=== PATIENT | male | born 1985 | race Caucasian/White ===

== ENCOUNTER 2019-11-26 11:36 | Emergency (ER) | payer OTHER, SELFPAY ==
[2019-11-26 12:05] VITALS: BP 141/100; PULSE 116; RESP 18; TEMP 36.6; O2SAT 96; BMI 28.5
--- NOTE | 2019-11-26 13:19 | ED_ITS ---
HPI - General Adult <Michael Reynolds MD - Last Filed: 11/27/19 18:15> General Chief complaint: Toxicology Problem Stated complaint: neck/back pain/depression/tox x3 days Time Seen by Provider: 11/26/19 12:23 Source: patient and family Mode of arrival: Ambulatory Limitations: no limitations History of Present Illness HPI narrative: Patient brought here by his father. They desire detox from methamphetamine.. Denies any other street drugs or illicit drugs. Does not abuse alcohol. Has been doing methamphetamine last night and this morning. Father states he relapsed about 3 or 4 days ago. He was clean and sober for 6 months. Patient is awake alert oriented to self and date of the month of November. Denies any fall or injury. Patient was at [facility] 2 days ago and was at [facility] last evening. He eloped last night, did not want to wait for a rehab bed Related Data Home Medications Medication Instructions Recorded Confirmed quetiapine 100 mg PO DAILY 11/26/19 11/26/19 quetiapine 200 mg PO BEDTIME 11/26/19 11/26/19 Previous Rx's Medication Instructions Recorded divalproex 500 mg tablet,delayed 500 mg PO QID #360 tab 09/30/19 release gabapentin 600 mg tablet 600 mg PO .COMPLEX #0 tab 09/30/19 Allergies Allergy/AdvReac Type Severity Reaction Status Date / Time lamotrigine AdvReac Rash Verified 11/26/19 12:05 Review of Systems <Michael Reynolds MD - Last Filed: 11/27/19 18:15> Review of Systems Narrative: GENERAL: Denies chills, fatigue, malaise, fever, sweats. HEENT: Denies sinus pain, ear pain, sore throat, difficulty swallowing, dizziness. RESPIRATORY: Denies dyspnea, cough, wheezing, hemoptysis, sputum. CARDIOVASCULAR: Denies chest pain, palpitations, orthopnea, edema, GASTROINTESTINAL: Denies nausea, vomiting, abdominal pain, diarrhea, const ipation, melena. : Denies dysuria, frequency, incontinence, hematuria, urinary retention. MUSCULOSKELETAL: denies weakness, joint pain, or bony pain SKIN: Denies rash, skin lesions, or other NEUROLOGIC: Denies weakness, headache, numbness, change in speech, confusion, seizures, incoordination. PSYCHIATRIC: has anxiety, visual and auditory hallucinations. Denies SI or HI. ROS Unobtainable: All systems reviewed & are unremarkable except as noted in HPI and below Patient History <Michael Reynolds MD - Last Filed: 11/27/19 18:15> Social History Smoking Status: Current every day smoker Smoking Status: Current every day smoker Substance Use Type: methamphetamine Exam <Michael Reynolds MD - Last Filed: 11/27/19 18:15> Narrative Exam Narrative: GENERAL: patient appears stated age. Well-nourished, well- developed patient, in no distress, not toxic, anxious and tremulous HEAD: Atraumatic. Normocephalic. EYES: Pupils equal round and reactive. Extraocular motions intact. No scleral icterus. No injection or drainage. CARDIOVASCULAR: Regular rate and rhythm without murmurs, gallops, or rubs. RESPIRATORY: Clear to auscultation. Breath sounds equal bilaterally. No wheezes, rales, or rhonchi. GASTROINTESTINAL: Abdomen soft, non-tender, nondistended. EXTREMITIES: No edema or joint tenderness. BACK: Nontender without deformity or crepitance. No flank tenderness. NEURO: AOx3. Random tremors and limb movements. SKIN: No rash or erythema of visible areas Psychiatry; anxious but cooperative. Follows commands and questioning. Answers appropriately. Denies SI or HI. Initial Vital Signs Initial Vital Signs: Vital Signs Temperature 97.8 F 11/26/19 12:05 Pulse Rate 116 H 11/26/19 12:05 Respiratory Rate 18 11/26/19 12:05 Blood Pressure 141/100 H 11/26/19 12:05 Pulse Oximetry 96 11/26/19 12:05 <Arturo Payton DO - Last Filed: 11/27/19 18:13> Initial Vital Signs Initial Vital Signs: Vital Signs Temperature 97.8 F 11/26/19 12:05 Pulse Rate 116 H 11/26/19 12:05 Respiratory Rate 18 11/26/19 12:05 Blood Pressure 141/100 H 11/26/19 12:05 Pulse Oximetry 96 11/26/19 12:05 Course <Michael Reynolds MD - Last Filed: 11/27/19 18:15> Course Course Narrative: After all extensive review with social services patient finding able to find placement has no mesh crisis unit. November 26 9:39 a.m. Time 10:20 a.m.. I was able to call Ativan 1 mg every 2 hours as needed for agitation anxiety as protocol from [place] which crisis protocol she. Called into [facility] in [place] in [facility]. Father will pick it up and bring it here. Ten tablets of Ativan Orders Ordered: Discontinued Medications Divalproex Sodium (Depakote) 500 mg PO QID [facility] Last Admin: 11/27/19 10:46 Dose: 500 mg Documented by: Admin: 11/27/19 00:10 Dose: 500 mg Documented by: JACKLYN Doxycycline Hyclate (Vibramycin) 100 mg PO NOW ONE Stop: 11/27/19 01:02 Last Admin: 11/27/19 01:18 Dose: 100 mg Documented by: CARLOS Gabapentin (Neurontin) 600 mg PO TID [facility] Last Admin: 11/27/19 10:46 Dose: 600 mg Documented by: Admin: 11/27/19 00:10 Dose: 600 mg Documented by: JACKLYN Sodium Chloride (Normal Saline 0.9%) 1,000 mls @ 1,000 mls/hr IV BOLUS ONE Stop: 11/26/19 13:23 Last Infusion: 11/26/19 14:21 Dose: 0 mls/hr Documented by: Admin: 11/26/19 13:33 Dose: 1,000 mls/hr Documented by: CARLOS Lorazepam (Ativan) 1 mg IV NOW ONE Stop: 11/26/19 12:24 Last Admin: 11/26/19 13:32 Dose: 1 mg Documented by: CARLOS Lorazepam (Ativan) 1 mg PO NOW ONE Stop: 11/27/19 01:02 Last Admin: 11/27/19 01:18 Dose: 1 mg Documented by: CARLOS Lorazepam (Ativan) 1 mg PO NOW ONE Stop: 11/27/19 10:06 Last Admin: 11/27/19 10:46 Dose: 1 mg Documented by: SAUL Lorazepam (Ativan) 1 mg PO NOW ONE Stop: 11/27/19 12:02 Last Admin: 11/27/19 12:06 Dose: 1 mg Documented by: SAUL Nicotine (Nicoderm) 21 mg TOP NOW ONE Stop: 11/26/19 16:12 Last Admin: 11/26/19 16:40 Dose: 21 mg Documented by: CARLOS Olanzapine (Zyprexa Zydis) 10 mg PO NOW ONE Stop: 11/26/19 14:11 Last Admin: 11/26/19 14:14 Dose: 10 mg Documented by: CARLOS Ondansetron HCl (Zofran) 4 mg IV NOW ONE Stop: 11/26/19 12:25 Last Admin: 11/26/19 13:32 Dose: 4 mg Documented by: CARLOS Quetiapine Fumarate (Seroquel) 100 mg PO DAILY [facility] Last Admin: 11/27/19 12:06 Dose: 100 mg Documented by: SAUL Quetiapine Fumarate (Seroquel) 200 mg PO BEDTIME [facility] Last Admin: 11/27/19 01:20 Dose: Not Given Documented by: CARLOS Reevaluation(s) Reevaluation #1: No visual or auditory hallucinations at this time. Patient is resting comfortably. Disposition completed for transfer to [facility]. Time: 09:40 Vital Signs Vital signs: Vital Signs - 8 hr 11/27/19 11:54 Pulse Rate 108 H Respiratory Rate 20 Blood Pressure [Left Arm] 123/80 Pulse Oximetry 99 <Arturo Payton DO - Last Filed: 11/27/19 18:13> Course Course Narrative: patient received in sign out from Dr. Reynolds. I have performed an independent history and physical exam. He is resting comfortably, but asks if I can check out his leg which has a scratch and some surrounding redness. There is no fluctuance or induration and this is consistent with a mild early cellulitis for which he was given an antibiotic. The administration at [facility] called back and stated they are unable to accept patient at this time given their expected difficulty in placing patient at a detox facility on the back end. Orders Ordered: Discontinued Medications Divalproex Sodium (Depakote) 500 mg PO QID [facility] Last Admin: 11/27/19 10:46 Dose: 500 mg Documented by: Admin: 11/27/19 00:10 Dose: 500 mg Documented by: JACKLYN Doxycycline Hyclate (Vibramycin) 100 mg PO NOW ONE Stop: 11/27/19 01:02 Last Admin: 11/27/19 01:18 Dose: 100 mg Documented by: CARLOS Gabapentin (Neurontin) 600 mg PO TID [facility] Last Admin: 11/27/19 10:46 Dose: 600 mg Documented by: Admin: 11/27/19 00:10 Dose: 600 mg Documented by: JACKLYN Sodium Chloride (Normal Saline 0.9%) 1,000 mls @ 1,000 mls/hr IV BOLUS ONE Stop: 11/26/19 13:23 Last Infusion: 11/26/19 14:21 Dose: 0 mls/hr Documented by: Admin: 11/26/19 13:33 Dose: 1,000 mls/hr Documented by: CARLOS Lorazepam (Ativan) 1 mg IV NOW ONE Stop: 11/26/19 12:24 Last Admin: 11/26/19 13:32 Dose: 1 mg Documented by: CARLOS Lorazepam (Ativan) 1 mg PO NOW ONE Stop: 11/27/19 01:02 Last Admin: 11/27/19 01:18 Dose: 1 mg Documented by: CARLOS Lorazepam (Ativan) 1 mg PO NOW ONE Stop: 11/27/19 10:06 Last Admin: 11/27/19 10:46 Dose: 1 mg Documented by: SAUL Lorazepam (Ativan) 1 mg PO NOW ONE Stop: 11/27/19 12:02 Last Admin: 11/27/19 12:06 Dose: 1 mg Documented by: SAUL Nicotine (Nicoderm) 21 mg TOP NOW ONE Stop: 11/26/19 16:12 Last Admin: 11/26/19 16:40 Dose: 21 mg Documented by: CARLOS Olanzapine (Zyprexa Zydis) 10 mg PO NOW ONE Stop: 11/26/19 14:11 Last Admin: 11/26/19 14:14 Dose: 10 mg Documented by: CARLOS Ondansetron HCl (Zofran) 4 mg IV NOW ONE Stop: 11/26/19 12:25 Last Admin: 11/26/19 13:32 Dose: 4 mg Documented by: CARLOS Quetiapine Fumarate (Seroquel) 100 mg PO DAILY [facility] Last Admin: 11/27/19 12:06 Dose: 100 mg Documented by: MMCFARL Quetiapine Fumarate (Seroquel) 200 mg PO BEDTIME [facility] Last Admin: 11/27/19 01:20 Dose: Not Given Documented by: CARLOS Vital Signs Vital signs: Vital Signs - 8 hr 11/27/19 11:54 Pulse Rate 108 H Respiratory Rate 20 Blood Pressure [Left Arm] 123/80 Pulse Oximetry 99 Medical Decision Making <Michael Reynolds MD - Last Filed: 11/27/19 18:15> Lab Data Result diagrams: 11/26/19 13:20 11/26/19 13:20 Labs: Lab Results 11/26/19 11/26/19 11/26/19 Range/Units 13:20 13:20 13:20 WBC 9.3 (4.5-11.0) X10^3/uL RBC 3.98 L (4.5-5.9) X10^6/uL Hgb 12.1 L (13.5-17.5) g/dL Hct 34.1 L (41-53) % MCV 85.7 (80-100) fL MCH 30.4 (26-34) PG MCHC 35.5 (30-36) % RDW 12.1 (11.6-14.8) % Plt Count 273 (150-400) X10^3/uL Neut % (Auto) 78.8 H (50-75) % Lymph % (Auto) 11.4 L (25-40) % [place] % (Auto) 9.0 (3-14) % Eos % (Auto) 0.5 L (2-4) % Baso % (Auto) 0.3 (0-2) % Neut # (Auto) 7300 H (4497-2985) /uL Lymph # (Auto) 1100 (8093-9793) /uL [place] # (Auto) 800 (0-900) /uL Eos # (Auto) 0 (0-450) /uL Baso # (Auto) 0 (0-100) /uL Sodium 138 (137-145) mmol/L Potassium 3.6 (3.4-5.1) mmol/L Chloride 106 (98-107) mmol/L Carbon Dioxide 24 (22-32) mmol/L BUN 28 H (9-20) mg/dL Creatinine 0.74 (0.66-1.25) mg/dL Estimated GFR > 60.0 (>60) mL/min BUN/Creatinine Ratio 37.8 H (6-22) Glucose 118 H (70-100) mg/dL Calcium 9.1 (8.4-10.2) mg/dL Phosphorus 4.8 H (2.5-4.5) mg/dL Magnesium 2.1 (1.6-2.3) mg/dL Total Bilirubin 0.8 (0.2-1.3) mg/dL Conjugated Bilirubin 0.0 (0.0-0.3) md/dL Unconjugated Bilirubin 0.7 (0.0-1.1) mg/dL AST 67 H (17-59) IU/L ALT 38 (<50) IU/L Alkaline Phosphatase 69 (38-126) U/L Total Protein 7.1 (6.3-8.2) g/dL Albumin 4.0 (3.5-5.0) g/dL Globulin 3.1 (1.7-4.1) g/dL Albumin/Globulin Ratio 1.3 (1.0-2.8) Lipase 38 (23-300) U/L TSH 1.49 (0.47-4.68) uIU/mL Urine Color Urine Appearance Urine pH (4.5-8.0) Ur Specific Gordon (1.000-1.035) Urine Protein (Negative) Urine Glucose (UA) (Negative) g/dL Urine Ketones (NEGATIVE) Urine Occult Blood (Negative) Urine Nitrate (Negative) Urine Bilirubin (NEGATIVE) Urine Urobilinogen (0.2) E.U./dL Ur Leukocyte Esterase (NEGATIVE) Urine RBC (0-5/HPF) Urine WBC (0-5/HPF) Urine Bacteria (None) Ur Culture Indicated? Salicylates < 1.0 (<20) mg/dL U Opiates 300ng/mL cut (Negative) Ur Oxycodone Screen (Negative) Urine Methadone Screen (Negative) Acetaminophen < 10 L (10-30) ug/mL Ur Barbiturates Screen (Negative) U Tricyclic Antidepress (Negative) Ur Phencyclidine Scrn (Negative) Ur Amphetamines Screen (Negative) U Methamphetamines Scrn (Negative) Ur MDMA Scrn (Ecstasy) (Negative) U Benzodiazepines Scrn (Negative) Urine Cocaine Screen (Negative) U Marijuana (THC) Screen (Negative) Ethyl Alcohol < 10 ( - 10) mg/dL 11/26/19 11/26/19 Range/Units 23:04 23:04 WBC (4.5-11.0) X10^3/uL RBC (4.5-5.9) X10^6/uL Hgb (13.5-17.5) g/dL Hct (41-53) % MCV (80-100) fL MCH (26-34) PG MCHC (30-36) % RDW (11.6-14.8) % Plt Count (150-400) X10^3/uL Neut % (Auto) (50-75) % Lymph % (Auto) (25-40) % [place] % (Auto) (3-14) % Eos % (Auto) (2-4) % Baso % (Auto) (0-2) % Neut # (Auto) (9426-6664) /uL Lymph # (Auto) (8377-7846) /uL [place] # (Auto) (0-900) /uL Eos # (Auto) (0-450) /uL Baso # (Auto) (0-100) /uL Sodium (137-145) mmol/L Potassium (3.4-5.1) mmol/L Chloride (98-107) mmol/L Carbon Dioxide (22-32) mmol/L BUN (9-20) mg/dL Creatinine (0.66-1.25) mg/dL Estimated GFR (>60) mL/min BUN/Creatinine Ratio (6-22) Glucose (70-100) mg/dL Calcium (8.4-10.2) mg/dL Phosphorus (2.5-4.5) mg/dL Magnesium (1.6-2.3) mg/dL Total Bilirubin (0.2-1.3) mg/dL Conjugated Bilirubin (0.0-0.3) md/dL Unconjugated Bilirubin (0.0-1.1) mg/dL AST (17-59) IU/L ALT (<50) IU/L Alkaline Phosphatase (38-126) U/L Total Protein (6.3-8.2) g/dL Albumin (3.5-5.0) g/dL Globulin (1.7-4.1) g/dL Albumin/Globulin Ratio (1.0-2.8) Lipase (23-300) U/L TSH (0.47-4.68) uIU/mL Urine Color Yellow Urine Appearance Clear Urine pH 6.0 (4.5-8.0) Ur Specific Gordon 1.025 (1.000-1.035) Urine Protein Negative (Negative) Urine Glucose (UA) Negative (Negative) g/dL Urine Ketones 1+ H (NEGATIVE) Urine Occult Blood Negative (Negative) Urine Nitrate Negative (Negative) Urine Bilirubin Negative (NEGATIVE) Urine Urobilinogen 1.0 (0.2) E.U./dL Ur Leukocyte Esterase Negative (NEGATIVE) Urine RBC None seen (0-5/HPF) Urine WBC 0-1/hpf (0-5/HPF) Urine Bacteria None seen (None) Ur Culture Indicated? Cult not indicated Salicylates (<20) mg/dL U Opiates 300ng/mL cut Negative (Negative) Ur Oxycodone Screen Negative (Negative) Urine Methadone Screen Negative (Negative) Acetaminophen (10-30) ug/mL Ur Barbiturates Screen Negative (Negative) U Tricyclic Antidepress Positive H (Negative) Ur Phencyclidine Scrn Negative (Negative) Ur Amphetamines Screen Positive H (Negative) U Methamphetamines Scrn Positive H (Negative) Ur MDMA Scrn (Ecstasy) Negative (Negative) U Benzodiazepines Scrn Negative (Negative) Urine Cocaine Screen Negative (Negative) U Marijuana (THC) Screen Negative (Negative) Ethyl Alcohol ( - 10) mg/dL ECG Data Attestation: I personally reviewed and interpreted this ECG as follows: Interpretation: EKG at 1420 normal sinus rhythm. Ventricular rate 97. No ST elevation or depression. No QT prolongation. Normal EKG. <Arturo Payton, DO - Last Filed: 11/27/19 18:13> Lab Data Labs: Lab Results 11/26/19 11/26/19 11/26/19 Range/Units 13:20 13:20 13:20 WBC 9.3 (4.5-11.0) X10^3/uL RBC 3.98 L (4.5-5.9) X10^6/uL Hgb 12.1 L (13.5-17.5) g/dL Hct 34.1 L (41-53) % MCV 85.7 (80-100) fL MCH 30.4 (26-34) PG MCHC 35.5 (30-36) % RDW 12.1 (11.6-14.8) % Plt Count 273 (150-400) X10^3/uL Neut % (Auto) 78.8 H (50-75) % Lymph % (Auto) 11.4 L (25-40) % [place] % (Auto) 9.0 (3-14) % Eos % (Auto) 0.5 L (2-4) % Baso % (Auto) 0.3 (0-2) % Neut # (Auto) 7300 H (5233-4864) /uL Lymph # (Auto) 1100 (0529-3918) /uL [place] # (Auto) 800 (0-900) /uL Eos # (Auto) 0 (0-450) /uL Baso # (Auto) 0 (0-100) /uL Sodium 138 (137-145) mmol/L Potassium 3.6 (3.4-5.1) mmol/L Chloride 106 (98-107) mmol/L Carbon Dioxide 24 (22-32) mmol/L BUN 28 H (9-20) mg/dL Creatinine 0.74 (0.66-1.25) mg/dL Estimated GFR > 60.0 (>60) mL/min BUN/Creatinine Ratio 37.8 H (6-22) Glucose 118 H (70-100) mg/dL Calcium 9.1 (8.4-10.2) mg/dL Phosphorus 4.8 H (2.5-4.5) mg/dL Magnesium 2.1 (1.6-2.3) mg/dL Total Bilirubin 0.8 (0.2-1.3) mg/dL Conjugated Bilirubin 0.0 (0.0-0.3) md/dL Unconjugated Bilirubin 0.7 (0.0-1.1) mg/dL AST 67 H (17-59) IU/L ALT 38 (<50) IU/L Alkaline Phosphatase 69 (38-126) U/L Total Protein 7.1 (6.3-8.2) g/dL Albumin 4.0 (3.5-5.0) g/dL Globulin 3.1 (1.7-4.1) g/dL Albumin/Globulin Ratio 1.3 (1.0-2.8) Lipase 38 (23-300) U/L TSH 1.49 (0.47-4.68) uIU/mL Urine Color Urine Appearance Urine pH (4.5-8.0) Ur Specific Gordon (1.000-1.035) Urine Protein (Negative) Urine Glucose (UA) (Negative) g/dL Urine Ketones (NEGATIVE) Urine Occult Blood (Negative) Urine Nitrate (Negative) Urine Bilirubin (NEGATIVE) Urine Urobilinogen (0.2) E.U./dL Ur Leukocyte Esterase (NEGATIVE) Urine RBC (0-5/HPF) Urine WBC (0-5/HPF) Urine Bacteria (None) Ur Culture Indicated? Salicylates < 1.0 (<20) mg/dL U Opiates 300ng/mL cut (Negative) Ur Oxycodone Screen (Negative) Urine Methadone Screen (Negative) Acetaminophen < 10 L (10-30) ug/mL Ur Barbiturates Screen (Negative) U Tricyclic Antidepress (Negative) Ur Phencyclidine Scrn (Negative) Ur Amphetamines Screen (Negative) U Methamphetamines Scrn (Negative) Ur MDMA Scrn (Ecstasy) (Negative) U Benzodiazepines Scrn (Negative) Urine Cocaine Screen (Negative) U Marijuana (THC) Screen (Negative) Ethyl Alcohol < 10 ( - 10) mg/dL 11/26/19 11/26/19 Range/Units 23:04 23:04 WBC (4.5-11.0) X10^3/uL RBC (4.5-5.9) X10^6/uL Hgb (13.5-17.5) g/dL Hct (41-53) % MCV (80-100) fL MCH (26-34) PG MCHC (30-36) % RDW (11.6-14.8) % Plt Count (150-400) X10^3/uL Neut % (Auto) (50-75) % Lymph % (Auto) (25-40) % [place] % (Auto) (3-14) % Eos % (Auto) (2-4) % Baso % (Auto) (0-2) % Neut # (Auto) (1830-1823) /uL Lymph # (Auto) (2501-6007) /uL [place] # (Auto) (0-900) /uL Eos # (Auto) (0-450) /uL Baso # (Auto) (0-100) /uL Sodium (137-145) mmol/L Potassium (3.4-5.1) mmol/L Chloride (98-107) mmol/L Carbon Dioxide (22-32) mmol/L BUN (9-20) mg/dL Creatinine (0.66-1.25) mg/dL Estimated GFR (>60) mL/min BUN/Creatinine Ratio (6-22) Glucose (70-100) mg/dL Calcium (8.4-10.2) mg/dL Phosphorus (2.5-4.5) mg/dL Magnesium (1.6-2.3) mg/dL Total Bilirubin (0.2-1.3) mg/dL Conjugated Bilirubin (0.0-0.3) md/dL Unconjugated Bilirubin (0.0-1.1) mg/dL AST (17-59) IU/L ALT (<50) IU/L Alkaline Phosphatase (38-126) U/L Total Protein (6.3-8.2) g/dL Albumin (3.5-5.0) g/dL Globulin (1.7-4.1) g/dL Albumin/Globulin Ratio (1.0-2.8) Lipase (23-300) U/L TSH (0.47-4.68) uIU/mL Urine Color Yellow Urine Appearance Clear Urine pH 6.0 (4.5-8.0) Ur Specific [place] 1.025 (1.000-1.035) Urine Protein Negative (Negative) Urine Glucose (UA) Negative (Negative) g/dL Urine Ketones 1+ H (NEGATIVE) Urine Occult Blood Negative (Negative) Urine Nitrate Negative (Negative) Urine Bilirubin Negative (NEGATIVE) Urine Urobilinogen 1.0 (0.2) E.U./dL Ur Leukocyte Esterase Negative (NEGATIVE) Urine RBC None seen (0-5/HPF) Urine WBC 0-1/hpf (0-5/HPF) Urine Bacteria None seen (None) Ur Culture Indicated? Cult not indicated Salicylates (<20) mg/dL U Opiates 300ng/mL cut Negative (Negative) Ur Oxycodone Screen Negative (Negative) Urine Methadone Screen Negative (Negative) Acetaminophen (10-30) ug/mL Ur Barbiturates Screen Negative (Negative) U Tricyclic Antidepress Positive H (Negative) Ur Phencyclidine Scrn Negative (Negative) Ur Amphetamines Screen Positive H (Negative) U Methamphetamines Scrn Positive H (Negative) Ur MDMA Scrn (Ecstasy) Negative (Negative) U Benzodiazepines Scrn Negative (Negative) Urine Cocaine Screen Negative (Negative) U Marijuana (THC) Screen Negative (Negative) Ethyl Alcohol ( - 10) mg/dL Discharge Plan Departure Patient Disposition: [facility] Clinical Impression: Methamphetamine use disorder, mild, in early remission, abuse Discharge Date/Time: 11/27/19 12:35 Prescriptions: No Action divalproex 500 mg tablet,delayed release (DR/EC) 500 mg PO QID Qty: 360 RF: 1 gabapentin 600 mg tablet 600 mg PO .COMPLEX Qty: 0 RF: 1 quetiapine 100 mg tablet 200 mg PO BEDTIME RF: 0 quetiapine 100 mg tablet 100 mg PO DAILY RF: 0
[2019-11-26] MEDS: ONDANSETRON 4 MG/2 ML INJ IV (13:32)
[2019-11-26] MEDS: LORazepam 2 MG/ML INJ 1 MG IV (13:32)
[2019-11-26] MEDS: SODIUM CHLORIDE 0.9% 1,000 ML 1000 ML IV (13:33)
[2019-11-26 13:36] LABS: Add Manual Diff / Slide Review NO; Basophils Absolute Auto 0 /uL (0-100); Basophils Percent Auto 0.3 % (0-2); Eosinophils Absolute Auto 0 /uL (0-450); Eosinophils Percent Auto 0.5 % (2-4); Hematocrit 34.1 % (41-53); Hemoglobin 12.1 g/dL (13.5-17.5); Lymphocytes Absolute Auto 1100 /uL (1100-4500); Lymphocytes Percent Auto 11.4 % (25-40); Mean Corpuscular HGB Conc 35.5 % (30-36); Mean Corpuscular Hemoglobin 30.4 PG (26-34); Mean Corpuscular Volume 85.7 fL (80-100); Monocytes Absolute Auto 800 /uL (0-900); Neutrophils Absolute Auto 7300 /uL (1500-7000); Neutrophils Percent Auto 78.8 % (50-75); Platelet Count 273 X10^3/uL (150-400); Red Blood Cell Count 3.98 X10^6/uL (4.5-5.9); Red Cell Distribution Width 12.1 % (11.6-14.8); White Blood Cell Count 9.3 X10^3/uL (4.5-11.0)
[2019-11-26 13:49] LABS: Acetaminophen < 10 ug/mL (10-30); Alanine Aminotransferase 38 IU/L (<50); Albumin Globulin Ratio 1.3 (1.0-2.8); Alkaline Phosphatase 69 U/L (38-126); Aspartate Aminotransferase 67 IU/L (17-59); BUN Creatinine Ratio 37.8 (6-22); Bilirubin Total 0.8 mg/dL (0.2-1.3); Bilirubin Unconjugated 0.7 mg/dL (0.0-1.1); Blood Urea Nitrogen 28 mg/dL (9-20); Calcium 9.1 mg/dL (8.4-10.2); Carbon Dioxide 24 mmol/L (22-32); Chloride 106 mmol/L (98-107); Estimated Glomerular Filt Rate > 60.0 mL/min (>60); Ethanol (ETOH) < 10 mg/dL; Globulin 3.1 g/dL (1.7-4.1); Glucose 118 mg/dL (70-100); HEMOLYSIS < 15 (0-50); Lipase 38 U/L (23-300); Magnesium 2.1 mg/dL (1.6-2.3); Phosphorous 4.8 mg/dL (2.5-4.5); Potassium 3.6 mmol/L (3.4-5.1); Salicylate < 1.0 mg/dL (<20); Sodium 138 mmol/L (137-145); Total Protein 7.1 g/dL (6.3-8.2)
[2019-11-26] MEDS: OLANZapine ODT 10 MG TAB PO (14:14)
[2019-11-26 14:19] LABS: Thyroid Stimulating Hormone 1.49 uIU/mL (0.47-4.68)
--- NOTE | 2019-11-26 14:22 | PC.NURSE ---
1410 Patient out walking in hallway. He has DC'd his own IV and is experiencing paranoid delusions stating that some one was in my room messing with me. I explained to him that he is welcome to leave if he wants to per dr. Reynolds. I stated if he wants to stay then he needs to return to his room and I can get him more medication to help him to calm down. He states he wants help and agrees to return to his room. He is currently sitting in room. Verbal order for 10mg Zyprexa given at this time.
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
[2019-11-26 15:30] VITALS: BP 148/88; PULSE 97; O2SAT 95
[2019-11-26] MEDS: NICOTINE 21 MG PATCH TOP (16:40)
--- NOTE | 2019-11-26 16:54 | PC.NURSE ---
Asking for nicotine patch, verbal order given by Dr. loredo
[2019-11-26 17:26] VITALS: BP 144/89; PULSE 89; RESP 16; O2SAT 97
--- NOTE | 2019-11-26 20:06 | PC.NURSE ---
Patient awake in bed, speaking more coherently at this time. Is A&Ox3 sitting up and eating dinner at this time. Asks for apple juice and reports he will provide urine specimen.
[2019-11-26 23:06] VITALS: BP 134/84; PULSE 86; O2SAT 95
[2019-11-26 23:17] LABS: Bacteria Urine None Seen; RBC Urine None Seen (0-5/HPF)
[2019-11-26 23:19] LABS: Appearance Urine UA CLEAR; Bilirubin Urine UA NEGATIVE (NEGATIVE); Color Urine UA YELLOW; Glucose Urine UA NEGATIVE (Negative); Ketones Urine UA 1+ (NEGATIVE); Leukocyte Esterase Urine UA NEGATIVE (NEGATIVE); Nitrite Urine UA NEGATIVE (Negative); Occult Blood Urine UA NEGATIVE (Negative); Protein Urine UA NEGATIVE (Negative); Specific Gravity Urine UA 1.025 (1.000-1.035)
[2019-11-26 23:36] LABS: UR Morphine/Opiate cutoff 300 Negative (Negative); Ur Creatinine 50 (Normal); Ur Specific Gravity 1.025 (Normal); Urine Amphetamines Positive (Negative); Urine Barbiturates Negative (Negative); Urine Benzodiazepines Negative (Negative); Urine Cocaine Negative (Negative); Urine MDMA Negative (Negative); Urine Methadone Negative (Negative); Urine Methamphetamines Positive (Negative); Urine Oxycodone Negative (Negative); Urine Phencyclidine Negative (Negative); Urine Tetrahydrocannabinol Negative (Negative); Urine Tricyclic Antidepressant Positive (Negative); Urine pH 6 (Normal)
[2019-11-27] LABS: Culture Indicated Urine Cult Not Indicated; WBC Urine 0-1/HPF (0-5/HPF)
[2019-11-27] MEDS: DIVALPROEX DR 250 MG TABLET 500 MG PO ×2 (00:10→10:46)
[2019-11-27] MEDS: GABAPENTIN 600 MG TABLET PO ×2 (00:10→10:46)
[2019-11-27] MEDS: LORazepam 0.5 MG TABLET 1 MG PO ×3 (01:18→12:06)
[2019-11-27] MEDS: DOXYCYCLINE HYCLATE 100 MG TABLET PO (01:18)
--- NOTE | 2019-11-27 01:25 | PC.NURSE ---
0100 Patient began complaining of Right left pain. I removed his socks on both feet and inspected his legs. His right lower leg appears red and swollen. States he may have hit it on something. I spoke with Dr. Payton about possible cellulitis. He is assessing leg.
--- NOTE | 2019-11-27 01:31 | PC.NURSE ---
Patient is A&Ox3 and improving in his ability to understand and follow directions. Able to hold eye contact and answer questions without redirecting. Speech is still stuttered and he has involuntary muscle movements/twitching.
[2019-11-27 09:28] VITALS: BP 126/75; PULSE 94; RESP 20; O2SAT 98
--- NOTE | 2019-11-27 09:54 | CM.SWNOTE ---
FAMILY PRACTICE PHYSICIAN ASSISTANT Note: Reviewed chart this AM. Patient remains in Room#13 awaiting bed for psychiatric treatment. FAMILY PRACTICE PHYSICIAN ASSISTANT me with patient explained role. Patient groggy at time of visit due to medication that he has received to assist with hallucinations/paranoia. Patient aware and agreeable to go inpatient for help with his mental health stabilization. Patient also admits to being sober for 6 months and recently relapsing on meth. Spoke with ED provider and he does not necessarily feel like patient is continuing detox from meth but having mental health outbursts possibly related to the avoidance of meth and lack of correctly taking his medications due to relapse. Reviewed previous FAMILY PRACTICE PHYSICIAN ASSISTANT notes. Placed call to [facility] whom were reviewing for admit last pm. Spoke with Racheal and provided her with medication update. She is agreeable for patient to come there today. Address location is: [address] [place] [address]. [phone] # [phone]. RN given number to call report to Racheal. She is requesting that patient come to facility with medications. Patient's father had brought his medications to [facility] yesterday and ativan has been added. ED/provider willing to write script for ativan. All other home medications will be sent with patient. Spoke with Dad/Cosmo and he is agreeable to sweet pickled fruit maker script for ativan at [facility] in [facility] and bring to [facility] prior to patient's departure. [facility] updated. P: [facility] today. [facility]/Mariel agreeable to coordinate non-urgent BLS transport. supervisor twisting department scheduled for noon. VIOLETA Chavez
[2019-11-27 11:54] VITALS: BP 123/80; PULSE 108; RESP 20; O2SAT 99
[2019-11-27] MEDS: QUETIAPINE 100 MG TABLET PO (12:06)
[2019-11-28 06:38] LABS: Valproic Acid (Depakene) Total 27 ug/mL (50-100)
== END 2019-11-27 12:35 ==
PROVIDERS: Emergency Medicine; Emergency Provider Emergency Medicine
DX: F15.11 Other stimulant abuse, in remission (principal); F32.9 Major depressive disorder, single episode, unspecified
CPT/HCPCS: 36415; 80053; 80076; 80164; 80305; 80320; 80329; 81001; 83690; 83735; 84100; 84443; 85025; 93005; 93010; 96361; 96374; 96375; 99285; G0480; J2060; J2405

== ENCOUNTER 2019-12-09 22:44 | Emergency (ER) | payer OTHER, SELFPAY ==
[2019-12-09 23:16] VITALS: BP 135/79; PULSE 101; RESP 18; TEMP 36.8; O2SAT 97
--- NOTE | 2019-12-09 23:30 | PC.NURSE ---
PT arrives at ED stating wants help stopping drugs and quitting meth and detox placement. Pt states used meth 2 days ago, pt denies SI or HI. Pt appears anxious, pressured speech pacing in room, has scabs to his face he endorse picking at his face. Reports he was at [facility] earlier tonight but left due to being unhappy with his care. PT has hx of PTSD, anxiety, depression and borderline personality.
--- NOTE | 2019-12-09 23:36 | PC.NURSE ---
pts medications include: gabapentin 600mg, quietiapine egofzizt181ro, zubsolv sub, and divalproex sod 500mg. Pt has wallet on his person as well as keys and an ointment. There is a large amount of valladares in the pts wallet(uncounted).
--- NOTE | 2019-12-09 23:38 | PC.NURSE ---
pt moved into rm 11 from triage. Pt is compliant with putting his medications and other personal items in a belongings bag and into a locked cabinet at the nurses station. Pts belongings were logged and labeled. Pt is now laying on gurney with a blanket. Lights are off and call light is at bedside. Pt aware of need for urine sample
--- NOTE | 2019-12-09 23:56 | PC.NURSE ---
Pt is having a difficulty keeping the voices out of his head, he states he has DANIEL and the conversations in his head were put there by the government. He states he is freaking out. A lot of his conversation is garbled and disconnected from one sentence to the next. Talking to himself a lot
[2019-12-10 00:44] LABS: Bacteria Urine None Seen; RBC Urine None Seen (0-5/HPF); WBC Urine None Seen (0-5/HPF)
[2019-12-10 00:46] LABS: Appearance Urine UA CLEAR; Bilirubin Urine UA NEGATIVE (NEGATIVE); Color Urine UA YELLOW; Glucose Urine UA NEGATIVE (Negative); Ketones Urine UA NEGATIVE (NEGATIVE); Leukocyte Esterase Urine UA NEGATIVE (NEGATIVE); Nitrite Urine UA NEGATIVE (Negative); Occult Blood Urine UA NEGATIVE (Negative); Protein Urine UA NEGATIVE (Negative); pH Urine UA 7.5 (4.5-8.0)
[2019-12-10 00:49] LABS: UR Morphine/Opiate cutoff 300 Negative (Negative); Ur Creatinine 50 (Normal); Urine Amphetamines Negative (Negative); Urine Barbiturates Negative (Negative); Urine Benzodiazepines Negative (Negative); Urine Cocaine Negative (Negative); Urine MDMA Negative (Negative); Urine Methadone Negative (Negative); Urine Methamphetamines Positive (Negative); Urine Oxycodone Negative (Negative); Urine Phencyclidine Negative (Negative); Urine Tetrahydrocannabinol Negative (Negative); Urine Tricyclic Antidepressant Positive (Negative); Urine pH 7.5 (Normal)
[2019-12-10 00:57] LABS: Amorphous Sediment Urine 2+; Culture Indicated Urine Cult Not Indicated
[2019-12-10 00:57] LABS: Add Manual Diff / Slide Review NO; Basophils Absolute Auto 100 /uL (0-100); Basophils Percent Auto 0.8 % (0-2); Eosinophils Absolute Auto 400 /uL (0-450); Eosinophils Percent Auto 5.3 % (2-4); Hematocrit 36.2 % (41-53); Hemoglobin 12.4 g/dL (13.5-17.5); Lymphocytes Absolute Auto 1900 /uL (1100-4500); Lymphocytes Percent Auto 29.2 % (25-40); Mean Corpuscular HGB Conc 34.4 % (30-36); Mean Corpuscular Hemoglobin 29.6 PG (26-34); Mean Corpuscular Volume 86.1 fL (80-100); Monocytes Absolute Auto 700 /uL (0-900); Neutrophils Absolute Auto 3600 /uL (1500-7000); Neutrophils Percent Auto 54.7 % (50-75); Platelet Count 260 X10^3/uL (150-400); Red Cell Distribution Width 12.4 % (11.6-14.8); White Blood Cell Count 6.7 X10^3/uL (4.5-11.0)
[2019-12-10 01:06] LABS: Alanine Aminotransferase 31 IU/L (<50); Albumin 3.9 g/dL (3.5-5.0); Albumin Globulin Ratio 1.3 (1.0-2.8); Alkaline Phosphatase 69 U/L (38-126); Aspartate Aminotransferase 53 IU/L (17-59); BUN Creatinine Ratio 23.5 (6-22); Bilirubin Total 0.6 mg/dL (0.2-1.3); Blood Urea Nitrogen 20 mg/dL (9-20); Calcium 9.1 mg/dL (8.4-10.2); Carbon Dioxide 30 mmol/L (22-32); Chloride 102 mmol/L (98-107); Estimated Glomerular Filt Rate > 60.0 mL/min (>60); Ethanol (ETOH) < 10 mg/dL; Globulin 2.9 g/dL (1.7-4.1); Glucose 105 mg/dL (70-100); HEMOLYSIS < 15 (0-50); Potassium 3.4 mmol/L (3.4-5.1); Sodium 139 mmol/L (137-145); Total Protein 6.8 g/dL (6.3-8.2)
[2019-12-10 01:51] LABS: Thyroid Stimulating Hormone 2.37 uIU/mL (0.47-4.68)
--- NOTE | 2019-12-10 02:01 | PC.NURSE ---
Pt spoke with
[2019-12-10] MEDS: LORazepam 0.5 MG TABLET 1 MG PO (02:02)
--- NOTE | 2019-12-10 02:45 | ED_ITS ---
HPI - Psych <Arturo Payton DO - Last Filed: 12/11/19 01:50> General Chief Complaint: Psychiatric Symptoms Stated Complaint: doesnt want to do drugs anymore Time Seen by Provider: 12/09/19 22:56 Source: patient Mode of arrival: Ambulatory Limitations: no limitations History of Present Illness HPI Narrative: 34M smoker with history of polysubstance abuse, borderline personality, anxiety, depression, PTSD, presents to our emergency department this evening with the chief complaint of desire to be placed into a detox facility. He smokes methamphetamines and wants to quit. He most recently used about 2 days ago. He denies any suicidal or homicidal ideation. He has skin excoriations on his face which he admits are from picking at his skin. [facility], but left because he wasn't happy with how the night was going for him there, he is not very clear with me about what this means. MD complaint: other Onset (ago): day(s) Duration: constant History of same: Yes Related Data Home Medications Medication Instructions Recorded Confirmed quetiapine 100 mg PO DAILY 11/26/19 12/09/19 quetiapine 200 mg PO BEDTIME 11/26/19 12/09/19 Previous Rx's Medication Instructions Recorded divalproex 500 mg tablet,delayed 500 mg PO QID #360 tab 09/30/19 release gabapentin 600 mg tablet 600 mg PO .COMPLEX #0 tab 09/30/19 doxycycline hyclate 100 mg PO BID #20 tab 12/10/19 Allergies Allergy/AdvReac Type Severity Reaction Status Date / Time lamotrigine AdvReac Rash Verified 12/09/19 10:06 Review of Systems <Arturo Payton DO - Last Filed: 12/11/19 01:50> Constitutional Constitutional: Denies chills, Denies fatigue, Denies fever(s), Denies frequent falls, Denies lethargy and Denies weakness Eyes Eyes: Denies change in vision, Denies eye discharge, Denies irritation and Denies loss of vision ENT Ears, Nose, Mouth, and Throat: Denies change in voice, Denies dizziness, Denies neck pain, Denies sore throat and Denies throat swelling Cardiovascular Cardiovascular: Denies chest pain, Denies irregular heart rhythm, Denies lightheadedness, Denies palpitations, Denies dyspnea, Denies dyspnea on exertion and Denies orthopnea Respiratory Respiratory: Denies cough, Denies dyspnea, Denies dyspnea on exertion and Denies wheezing Gastrointestinal Gastrointestinal: Denies abdominal pain, Denies change in bowel habits, Denies diarrhea, Denies nausea and Denies vomiting Musculoskeletal Musculoskeletal: Denies neck pain and Denies numbness Integumentary/Breasts Skin/Breast: Denies pruritus, Denies erythema, Denies rash and Reports wounds Neurologic Neurologic: Denies behavioral changes, Denies confusion, Denies dizziness, Denies frequent falls, Denies loss of vision, Denies numbness and Denies weakness Psychiatric Psychiatric: Denies anxiety, Denies behavioral changes, Denies confusion, Denies depression, Denies homicidal ideation and Denies suicidal ideation Endocrine Endocrine: Denies fatigue, Denies flushing and Denies palpitations Hematologic/Lymphatic Hematologic/Lymphatic: Denies easy bruising Allergic/Immunologic Allergic/Immunologic: Denies urticaria, Denies throat swelling and Denies wheezing Patient History <Arturo Payton DO - Last Filed: 12/11/19 01:50> Social History Smoking Status: Current every day smoker Smoking Status: Current every day smoker Substance Use Type: methamphetamine Exam <Arturo Payton DO - Last Filed: 12/11/19 01:50> Narrative Exam Narrative: GENERAL: [34] year old patient appears stated age. Well- nourished, well-developed patient, in mild distress. Pacing, a bit anxious. Pressured speech. HEAD: Atraumatic. Normocephalic. Superficial excoriations around and on nose. No bleeding or drainage. EYES: Pupils equal round and reactive. Extraocular motions intact. No scleral icterus. No injection or drainage. ENT: Nose without bleeding, purulent drainage. Throat without erythema, tonsillar hypertrophy or exudate. Airway patent. NECK: Trachea midline. Non tender CARDIOVASCULAR: Regular rate and rhythm without murmurs, gallops, or rubs. RESPIRATORY: Clear to auscultation. Breath sounds equal bilaterally. No wheezes, rales, or rhonchi. GASTROINTESTINAL: Abdomen soft, non-tender, nondistended. EXTREMITIES: No edema or joint tenderness. BACK: Nontender without deformity or crepitance. No flank tenderness. NEURO: AOx3. SKIN: No rash or erythema of visible areas Initial Vital Signs Initial Vital Signs: Vital Signs Temperature 98.2 F 12/09/19 23:16 Pulse Rate 101 H 12/09/19 23:16 Respiratory Rate 18 12/09/19 23:16 Blood Pressure 135/79 12/09/19 23:16 Pulse Oximetry 97 12/09/19 23:16 <Jb Canchola MD - Last Filed: 12/11/19 07:24> Initial Vital Signs Initial Vital Signs: Vital Signs Temperature 98.2 F 12/09/19 23:16 Pulse Rate 101 H 12/09/19 23:16 Respiratory Rate 18 12/09/19 23:16 Blood Pressure 135/79 12/09/19 23:16 Pulse Oximetry 97 12/09/19 23:16 Course <Arturo Payton DO - Last Filed: 12/11/19 01:50> Course Course Narrative: Patient seen and evaluated by EDI ANALYST. There are no available detox facilities that me the patient's requirements. Extensive time spent with patient and he is able to very safely be discharged. EDI ANALYST provided multiple close follow-up opportunities as noted in their no. Patient has had return precautions given and questions answered to his apparent satisfaction Orders Ordered: Discontinued Medications Lorazepam (Ativan) 1 mg PO NOW ONE Stop: 12/10/19 02:00 Last Admin: 12/10/19 02:02 Dose: 1 mg Documented by: WILLFARL Lorazepam (Ativan) 2 mg PO NOW ONE Stop: 12/10/19 16:43 Last Admin: 12/10/19 17:24 Dose: 2 mg Documented by: KEELEYILSON Vital Signs Vital signs: Vital Signs - 8 hr 12/10/19 11:51 12/10/19 11:52 12/10/19 15:10 Temperature 97.6 F Pulse Rate 85 73 71 Respiratory Rate 14 16 16 Blood Pressure [Right Arm] 97/68 118/64 113/62 Pulse Oximetry 95 98 99 <bJ Canchola MD - Last Filed: 12/11/19 07:24> Orders Ordered: Discontinued Medications Lorazepam (Ativan) 1 mg PO NOW ONE Stop: 12/10/19 02:00 Last Admin: 12/10/19 02:02 Dose: 1 mg Documented by: MMCFARL Lorazepam (Ativan) 2 mg PO NOW ONE Stop: 12/10/19 16:43 Last Admin: 12/10/19 17:24 Dose: 2 mg Documented by: BRENDA Vital Signs Vital signs: Vital Signs - 8 hr 12/10/19 11:51 12/10/19 11:52 12/10/19 15:10 Temperature 97.6 F Pulse Rate 85 73 71 Respiratory Rate 14 16 16 Blood Pressure [Right Arm] 97/68 118/64 113/62 Pulse Oximetry 95 98 99 MDM - Psych <Arturo Payton DO - Last Filed: 12/11/19 01:50> Lab Data Result diagrams: 12/10/19 00:45 12/10/19 00:45 Labs: Lab Results 12/10/19 12/10/19 12/10/19 Range/Units 00:30 00:30 00:45 WBC 6.7 (4.5-11.0) X10^3/uL RBC 4.20 L (4.5-5.9) X10^6/uL Hgb 12.4 L (13.5-17.5) g/dL Hct 36.2 L (41-53) % MCV 86.1 (80-100) fL MCH 29.6 (26-34) PG MCHC 34.4 (30-36) % RDW 12.4 (11.6-14.8) % Plt Count 260 (150-400) X10^3/uL Neut % (Auto) 54.7 (50-75) % Lymph % (Auto) 29.2 (25-40) % Schleicher % (Auto) 10.0 (3-14) % Eos % (Auto) 5.3 H (2-4) % Baso % (Auto) 0.8 (0-2) % Neut # (Auto) 3600 (8757-7485) /uL Lymph # (Auto) 1900 (1056-2183) /uL Schleicher # (Auto) 700 (0-900) /uL Eos # (Auto) 400 (0-450) /uL Baso # (Auto) 100 (0-100) /uL Sodium (137-145) mmol/L Potassium (3.4-5.1) mmol/L Chloride (98-107) mmol/L Carbon Dioxide (22-32) mmol/L BUN (9-20) mg/dL Creatinine (0.66-1.25) mg/dL Estimated GFR (>60) mL/min BUN/Creatinine Ratio (6-22) Glucose (70-100) mg/dL Calcium (8.4-10.2) mg/dL Total Bilirubin (0.2-1.3) mg/dL AST (17-59) IU/L ALT (<50) IU/L Alkaline Phosphatase (38-126) U/L Total Protein (6.3-8.2) g/dL Albumin (3.5-5.0) g/dL Globulin (1.7-4.1) g/dL Albumin/Globulin Ratio (1.0-2.8) TSH (0.47-4.68) uIU/mL Urine Color Yellow Urine Appearance Clear Urine pH 7.5 (4.5-8.0) Ur Specific [place] 1.010 (1.000-1.035) Urine Protein Negative (Negative) Urine Glucose (UA) Negative (Negative) g/dL Urine Ketones Negative (NEGATIVE) Urine Occult Blood Negative (Negative) Urine Nitrate Negative (Negative) Urine Bilirubin Negative (NEGATIVE) Urine Urobilinogen 1.0 (0.2) E.U./dL Ur Leukocyte Esterase Negative (NEGATIVE) Urine RBC None seen (0-5/HPF) Urine WBC None seen (0-5/HPF) Amorphous Sediment 2+ Urine Bacteria None seen (None) Ur Culture Indicated? Cult not indicated U Opiates 300ng/mL cut Negative (Negative) Ur Oxycodone Screen Negative (Negative) Urine Methadone Screen Negative (Negative) Ur Barbiturates Screen Negative (Negative) U Tricyclic Antidepress Positive H (Negative) Ur Phencyclidine Scrn Negative (Negative) Ur Amphetamines Screen Negative (Negative) U Methamphetamines Scrn Positive H (Negative) Ur MDMA Scrn (Ecstasy) Negative (Negative) U Benzodiazepines Scrn Negative (Negative) Urine Cocaine Screen Negative (Negative) U Marijuana (THC) Screen Negative (Negative) Ethyl Alcohol ( - 10) mg/dL 12/10/19 12/10/19 Range/Units 00:45 00:45 WBC (4.5-11.0) X10^3/uL RBC (4.5-5.9) X10^6/uL Hgb (13.5-17.5) g/dL Hct (41-53) % MCV (80-100) fL MCH (26-34) PG MCHC (30-36) % RDW (11.6-14.8) % Plt Count (150-400) X10^3/uL Neut % (Auto) (50-75) % Lymph % (Auto) (25-40) % Schleicher % (Auto) (3-14) % Eos % (Auto) (2-4) % Baso % (Auto) (0-2) % Neut # (Auto) (7928-9584) /uL Lymph # (Auto) (5547-5941) /uL Schleicher # (Auto) (0-900) /uL Eos # (Auto) (0-450) /uL Baso # (Auto) (0-100) /uL Sodium 139 (137-145) mmol/L Potassium 3.4 (3.4-5.1) mmol/L Chloride 102 (98-107) mmol/L Carbon Dioxide 30 (22-32) mmol/L BUN 20 (9-20) mg/dL Creatinine 0.85 (0.66-1.25) mg/dL Estimated GFR > 60.0 (>60) mL/min BUN/Creatinine Ratio 23.5 H (6-22) Glucose 105 H (70-100) mg/dL Calcium 9.1 (8.4-10.2) mg/dL Total Bilirubin 0.6 (0.2-1.3) mg/dL AST 53 (17-59) IU/L ALT 31 (<50) IU/L Alkaline Phosphatase 69 (38-126) U/L Total Protein 6.8 (6.3-8.2) g/dL Albumin 3.9 (3.5-5.0) g/dL Globulin 2.9 (1.7-4.1) g/dL Albumin/Globulin Ratio 1.3 (1.0-2.8) TSH 2.37 D (0.47-4.68) uIU/mL Urine Color Urine Appearance Urine pH (4.5-8.0) Ur Specific [place] (1.000-1.035) Urine Protein (Negative) Urine Glucose (UA) (Negative) g/dL Urine Ketones (NEGATIVE) Urine Occult Blood (Negative) Urine Nitrate (Negative) Urine Bilirubin (NEGATIVE) Urine Urobilinogen (0.2) E.U./dL Ur Leukocyte Esterase (NEGATIVE) Urine RBC (0-5/HPF) Urine WBC (0-5/HPF) Amorphous Sediment Urine Bacteria (None) Ur Culture Indicated? U Opiates 300ng/mL cut (Negative) Ur Oxycodone Screen (Negative) Urine Methadone Screen (Negative) Ur Barbiturates Screen (Negative) U Tricyclic Antidepress (Negative) Ur Phencyclidine Scrn (Negative) Ur Amphetamines Screen (Negative) U Methamphetamines Scrn (Negative) Ur MDMA Scrn (Ecstasy) (Negative) U Benzodiazepines Scrn (Negative) Urine Cocaine Screen (Negative) U Marijuana (THC) Screen (Negative) Ethyl Alcohol < 10 ( - 10) mg/dL <Jb Canchola MD - Last Filed: 12/11/19 07:24> Lab Data Labs: Lab Results 12/10/19 12/10/19 12/10/19 Range/Units 00:30 00:30 00:45 WBC 6.7 (4.5-11.0) X10^3/uL RBC 4.20 L (4.5-5.9) X10^6/uL Hgb 12.4 L (13.5-17.5) g/dL Hct 36.2 L (41-53) % MCV 86.1 (80-100) fL MCH 29.6 (26-34) PG MCHC 34.4 (30-36) % RDW 12.4 (11.6-14.8) % Plt Count 260 (150-400) X10^3/uL Neut % (Auto) 54.7 (50-75) % Lymph % (Auto) 29.2 (25-40) % Schleicher % (Auto) 10.0 (3-14) % Eos % (Auto) 5.3 H (2-4) % Baso % (Auto) 0.8 (0-2) % Neut # (Auto) 3600 (9574-9741) /uL Lymph # (Auto) 1900 (4607-7075) /uL Schleicher # (Auto) 700 (0-900) /uL Eos # (Auto) 400 (0-450) /uL Baso # (Auto) 100 (0-100) /uL Sodium (137-145) mmol/L Potassium (3.4-5.1) mmol/L Chloride (98-107) mmol/L Carbon Dioxide (22-32) mmol/L BUN (9-20) mg/dL Creatinine (0.66-1.25) mg/dL Estimated GFR (>60) mL/min BUN/Creatinine Ratio (6-22) Glucose (70-100) mg/dL Calcium (8.4-10.2) mg/dL Total Bilirubin (0.2-1.3) mg/dL AST (17-59) IU/L ALT (<50) IU/L Alkaline Phosphatase (38-126) U/L Total Protein (6.3-8.2) g/dL Albumin (3.5-5.0) g/dL Globulin (1.7-4.1) g/dL Albumin/Globulin Ratio (1.0-2.8) TSH (0.47-4.68) uIU/mL Urine Color Yellow Urine Appearance Clear Urine pH 7.5 (4.5-8.0) Ur Specific [place] 1.010 (1.000-1.035) Urine Protein Negative (Negative) Urine Glucose (UA) Negative (Negative) g/dL Urine Ketones Negative (NEGATIVE) Urine Occult Blood Negative (Negative) Urine Nitrate Negative (Negative) Urine Bilirubin Negative (NEGATIVE) Urine Urobilinogen 1.0 (0.2) E.U./dL Ur Leukocyte Esterase Negative (NEGATIVE) Urine RBC None seen (0-5/HPF) Urine WBC None seen (0-5/HPF) Amorphous Sediment 2+ Urine Bacteria None seen (None) Ur Culture Indicated? Cult not indicated U Opiates 300ng/mL cut Negative (Negative) Ur Oxycodone Screen Negative (Negative) Urine Methadone Screen Negative (Negative) Ur Barbiturates Screen Negative (Negative) U Tricyclic Antidepress Positive H (Negative) Ur Phencyclidine Scrn Negative (Negative) Ur Amphetamines Screen Negative (Negative) U Methamphetamines Scrn Positive H (Negative) Ur MDMA Scrn (Ecstasy) Negative (Negative) U Benzodiazepines Scrn Negative (Negative) Urine Cocaine Screen Negative (Negative) U Marijuana (THC) Screen Negative (Negative) Ethyl Alcohol ( - 10) mg/dL 12/10/19 12/10/19 Range/Units 00:45 00:45 WBC (4.5-11.0) X10^3/uL RBC (4.5-5.9) X10^6/uL Hgb (13.5-17.5) g/dL Hct (41-53) % MCV (80-100) fL MCH (26-34) PG MCHC (30-36) % RDW (11.6-14.8) % Plt Count (150-400) X10^3/uL Neut % (Auto) (50-75) % Lymph % (Auto) (25-40) % Schleicher % (Auto) (3-14) % Eos % (Auto) (2-4) % Baso % (Auto) (0-2) % Neut # (Auto) (5627-7451) /uL Lymph # (Auto) (0131-4224) /uL Schleicher # (Auto) (0-900) /uL Eos # (Auto) (0-450) /uL Baso # (Auto) (0-100) /uL Sodium 139 (137-145) mmol/L Potassium 3.4 (3.4-5.1) mmol/L Chloride 102 (98-107) mmol/L Carbon Dioxide 30 (22-32) mmol/L BUN 20 (9-20) mg/dL Creatinine 0.85 (0.66-1.25) mg/dL Estimated GFR > 60.0 (>60) mL/min BUN/Creatinine Ratio 23.5 H (6-22) Glucose 105 H (70-100) mg/dL Calcium 9.1 (8.4-10.2) mg/dL Total Bilirubin 0.6 (0.2-1.3) mg/dL AST 53 (17-59) IU/L ALT 31 (<50) IU/L Alkaline Phosphatase 69 (38-126) U/L Total Protein 6.8 (6.3-8.2) g/dL Albumin 3.9 (3.5-5.0) g/dL Globulin 2.9 (1.7-4.1) g/dL Albumin/Globulin Ratio 1.3 (1.0-2.8) TSH 2.37 D (0.47-4.68) uIU/mL Urine Color Urine Appearance Urine pH (4.5-8.0) Ur Specific [place] (1.000-1.035) Urine Protein (Negative) Urine Glucose (UA) (Negative) g/dL Urine Ketones (NEGATIVE) Urine Occult Blood (Negative) Urine Nitrate (Negative) Urine Bilirubin (NEGATIVE) Urine Urobilinogen (0.2) E.U./dL Ur Leukocyte Esterase (NEGATIVE) Urine RBC (0-5/HPF) Urine WBC (0-5/HPF) Amorphous Sediment Urine Bacteria (None) Ur Culture Indicated? U Opiates 300ng/mL cut (Negative) Ur Oxycodone Screen (Negative) Urine Methadone Screen (Negative) Ur Barbiturates Screen (Negative) U Tricyclic Antidepress (Negative) Ur Phencyclidine Scrn (Negative) Ur Amphetamines Screen (Negative) U Methamphetamines Scrn (Negative) Ur MDMA Scrn (Ecstasy) (Negative) U Benzodiazepines Scrn (Negative) Urine Cocaine Screen (Negative) U Marijuana (THC) Screen (Negative) Ethyl Alcohol < 10 ( - 10) mg/dL Discharge Plan Departure Patient Disposition: Home Clinical Impression: Methamphetamine use disorder, mild, in early remission, abuse, Cellulitis of face Discharge Date/Time: 12/10/19 18:09 Activity Restrictions/Additional Instructions: *You have been diagnosed with [ methamphetamine abuse ] *What to do: *Take medications as directed *Follow up with your primary care provider in 2-3 days, call for an appointment. Let them know you were seen in the Emergency Department and that we ask that you be seen in follow up. Please go to [facility] on Thursday at 530am for intake. *Return to ER if you should have any new, worsening or concerning symptoms *[facility] in [facility] may be a good resource for you as well. Please call [phone] Prescriptions: New doxycycline hyclate 100 mg tablet 100 mg PO BID Qty: 20 RF: 0 No Action divalproex 500 mg tablet,delayed release (DR/EC) 500 mg PO QID Qty: 360 RF: 1 gabapentin 600 mg tablet 600 mg PO .COMPLEX Qty: 0 RF: 1 quetiapine 100 mg tablet 200 mg PO BEDTIME RF: 0 quetiapine 100 mg tablet 100 mg PO DAILY RF: 0 Referrals: [facility] [Outside] [facility] [Outside] [facility] [Outside] <Jb Canchola MD - Last Filed: 12/11/19 07:24> Cosign ED Attending Cosignature Attestation: [id number]: The patient was requesting detoxification in assistance for his methamphetamine use. The patient was seen and evaluated by the medical geneticist who referred the patient to [facility] the [facility] who evaluated the patient and states that the patient does not meet their criteria. The patient will not be admitted to their institution. They did not worry about his level of intoxication. Their phone number was [phone]. Our medical geneticist was informed of the patient's status. 1222: Report was given to Dejuan the EDI ANALYST. He was informed that the patient is medically cleared. His drug screen was positive for tricyclic antidepressants and methamphetamine. The tricyclics may be what is causing him to become so sleepy. Dejuan will reassess the patient and try and find out whether not there is other treatment for the patient. 1643: Dejuan is trying to call and arrange detox and admission for methamphetamine use. He states that the patient is picking on his face and is very anxious and agitated and requires arm Ativan. The patient was administered 2 mg p.o..
--- NOTE | 2019-12-10 03:00 | PC.NURSE ---
eyes closed chest rising and falling
--- NOTE | 2019-12-10 04:32 | PC.NURSE ---
eyes closed chest rising and falling
--- NOTE | 2019-12-10 06:16 | PC.NURSE ---
eyes closed chest rising and falling
[2019-12-10 07:05] VITALS: BP 123/72; PULSE 75; O2SAT 95
--- NOTE | 2019-12-10 07:31 | PC.NURSE ---
Patient is sleeping
--- NOTE | 2019-12-10 08:31 | PC.NURSE ---
Breakfast at bedside, Pt sleeping did not want to wake up
--- NOTE | 2019-12-10 08:41 | PC.NURSE ---
SEAM HAMMERER and TECHNICAL EDUCATION TEACHER trying to wake Pt to place call to [facility]. Pt is very slow to wake. phone is at bedside for Pt to place call.
--- NOTE | 2019-12-10 08:54 | PC.NURSE ---
Pt slow to wake up enough to make phone call to [facility]
--- NOTE | 2019-12-10 08:58 | PC.NURSE ---
Pt tried calling [facility] x2 line is busy
--- NOTE | 2019-12-10 09:07 | PC.NURSE ---
Pt currently speaking with someone at [facility] on the Pt phone in Rm 11
--- NOTE | 2019-12-10 09:13 | PC.NURSE ---
[facility] state [facility] was 'to intoxicated' to cooperate with exam however pt was unable to hear her on phone. Now calling from another phone to finish the exam.
--- NOTE | 2019-12-10 09:16 | PC.NURSE ---
Pt going to try calling from desk phone after eating
--- NOTE | 2019-12-10 10:09 | PC.NURSE ---
Pt asked for cream for his nose. He was given some barrier cream and applied to his nose
--- NOTE | 2019-12-10 10:25 | PC.NURSE ---
Pt has open wounds on nose and is picking at them. He is requesting cream, discussed w/ provider and barrier cream given for moisturizing. Pt states it is not from methamphetamine use. No surrounding redness, drainage from wounds.
--- NOTE | 2019-12-10 11:48 | PC.NURSE ---
Pt woke up from sleep, got vital signs and has a snack provided, juice provided. Pt used the restroom.
[2019-12-10 11:51] VITALS: BP 97/68; PULSE 85; RESP 14; TEMP 36.4; O2SAT 95
[2019-12-10 11:52] VITALS: BP 118/64; PULSE 73; RESP 16; O2SAT 98
--- NOTE | 2019-12-10 12:04 | PC.NURSE ---
Awoke the patient, with lunch, sat up and is having lunch.
--- NOTE | 2019-12-10 13:01 | PC.NURSE ---
Pt is sleeping on and off.
--- NOTE | 2019-12-10 13:22 | PC.NURSE ---
Pt is sleeping.
--- NOTE | 2019-12-10 14:05 | CM.SWNOTE ---
MEDICAL IMAGING TECHNOLOGIST Consult Note: This MEDICAL IMAGING TECHNOLOGIST received consult request to complete [facility] assessment on this 34 yo male, presents yesterday evening asking for detox from Meth, last use 2 days ago. Rex has a significant psychiatric history, he is disabled and has [employer] managed MCR. Spoke w/ ED physician Arturo Payton who suggested Rex DC from the ED to a detox facility and then hopefully on to a longer term [facility] treatment facility. Dr Payton suggests Meth can remain in someone's body for up to 48-72 hours. Reviewed chart notes from Rex's ED stay approx two weeks ago. Placed call to [facility] and they suggested that a person needs to not have Meth in their system to be admitted (?) Placed call to [facility] this AM, they have two male beds today. Attempted to speak w/ Rex this morning and he was extremely difficult to arouse. Finally this MEDICAL IMAGING TECHNOLOGIST, RN and PROFESSOR OF PHYSICS were able to wake Rex up but he would not stay awake long enough to have a conversation or place a phone call. Returned to the ED to learn Rex had attempted to place a call to [facility] but staff admits he was slurring words and had a difficult time communicating. ED staff relays to this MEDICAL IMAGING TECHNOLOGIST they attempted to facilitate this screen in call to [facility] but screener at [facility] denied for admission today stating Rex had been there before and they were unable to meet his needs. Attempted again to speak w/Rex, discussed getting into an outpt D/A assessment in order to get into a treatment facility like [facility], provided numbers for [facility], [facility] and [facility] (places that can complete the D/A assessment). Rex was still having a hard time communicating w/terese MEDICAL IMAGING TECHNOLOGIST, rapid eye movement, drowsy, able to answer only in yes and no. Rex admits after questioning that he has nowhere to go and that he will drive his car upon DC. This MEDICAL IMAGING TECHNOLOGIST updated BRANDON Carney- patient still cannot participate in a meaningful conversation about [facility] resources and/or how to safely leave this ED. Suggest waiting for ED MEDICAL IMAGING TECHNOLOGIST Dejuan to arrive to f/u, RN agreed and will discuss w/ Dr Canchola. Noemi Valverde, VIOLETA
--- NOTE | 2019-12-10 15:01 | PC.NURSE ---
Pt still sleeping.
[2019-12-10 15:10] VITALS: BP 113/62; PULSE 71; RESP 16; O2SAT 99
--- NOTE | 2019-12-10 17:20 | CM.SWNOTE ---
4 H YOUTH DEVELOPMENT SPECIALIST assessment and note 4 H YOUTH DEVELOPMENT SPECIALIST consult requested for patient. Patient is a 34 y/o male who presents to the ED seeking detox and treatment for methamphetamine use. Patient was seen by this 4 H YOUTH DEVELOPMENT SPECIALIST in ED on 11/25 and was transferred to [facility] and detox for detox services. Patient and 4 H YOUTH DEVELOPMENT SPECIALIST complete assessment. Patient reports feeling depressed, but denies SI/HI. Patient reports wanting inpatient treatment to get clean. 4 H YOUTH DEVELOPMENT SPECIALIST asks if 4 H YOUTH DEVELOPMENT SPECIALIST can contact local detox and treatment facilities and patient provides verbal consent. 4 H YOUTH DEVELOPMENT SPECIALIST leaves voicemail for [facility] and [facility] [place] ([place] in [facility]. 4 H YOUTH DEVELOPMENT SPECIALIST calls [facility] who state that patient can stay in recliner at their facility for 23 hours, but that he would likely not remain at facility long enough to be connected to inpatient treatment due to weekend hours of many facilities. 4 H YOUTH DEVELOPMENT SPECIALIST provides update to Dr. Canchola and BRANDON Chavez. Pl: 4 H YOUTH DEVELOPMENT SPECIALIST will continue to seek to secure placement for patient. If no inpatient placement available, 4 H YOUTH DEVELOPMENT SPECIALIST will collaborate with patient to set up follow up with outpatient services for SULTANA assessment and support. 4 H YOUTH DEVELOPMENT SPECIALIST - Cable Dispatcher Assessment 4 H YOUTH DEVELOPMENT SPECIALIST - Cable Dispatcher Assessment Start: 12/10/19 16:58 Freq: Status: Active Protocol: Document 12/10/19 16:58 BRODY (Rec: 12/10/19 17:20 BRODY [id number]) 4 H YOUTH DEVELOPMENT SPECIALIST/Cable Dispatcher Assessment Time Spent with Patient Start date 12/10/19 Visit Start Time 16:00 End date 12/10/19 Visit End Time 16:45 Total time Care Management spent on 45 patient visit-in minutes Substance Abuse Screening Include Onset, Duration, Intensity Presenting Problem Patient presents to ED for second time during month of November stating that he wants to stop using meth and get into inpatient treatment. Precipitating Event(s) Patient relapsed on meth roughly 3 weeks ago. Since his relapse patient has started experiencing homelessness. Family Hx of Behavioral Abuse Patient has hx. of childhood trauma and describes a tense relationship with his father. Rehab Facilities? ((Date(s), Location(s) Patient detoxed at [facility] in early November. History of Withdrawal? Seizures? Patient does experience significant anxiety during withdrawals. Unknown if patient experiences seizures. Longest Period of Sobriety 6 months- May 2019- November 2019 Psychosocial Information Patient was sober for 6 months at the beginning of the year and was living at a [facility] house in [facility]. Patient has been considering returning to school but explains that he doesn't feel this is something he can take on while experiencing homelessness. Patient is currently living in his car and staying on friends houses. Patient reports estrangement from ex , daughter, and family. Patient reports previously working in the [employer], but is currently not working and receives SSDI at $ 1497/mo. Support System(s) Patient reports not having a current support system. School/Work Patient is not working and has considered returning to school prior to current relapse. Legal Concerns Legal Matters - Outstanding Issues none reported Mental Status Orientation (Person/Place/Time) Patient oriented to person/ place, not oriented to time Affect Anxious, Depressed/Irritable, stable. Congruent with mood Thought Content - Specify/Describe Patient stated he was feeling Obsessions, Delusions, Hallucinations depressed multiple times during assessment. Patient did not display hallucinations, delusions, or obsessions during assessment. Thought Processes (Tuydgxu-Ofiekakd-Eegm Disorganized Hjudvbfy-Ewpsdrrk-Pzbbgyhkit- Xtgilnzchxmriv-Chmmbsi-Dqvbvrujorgt- Thought Blocking) Speech (Qegpgn-Qiza-Bzrghhz-Rapid-Soft- Slurred, rapid, soft Loud-Pressured) Motor (Gmrtht-Azbvjrcxx-Mncu-Other) Excessive. Patient was picking at his face during assessment . Insight (Present-Partially Present- Partially Present Impaired) Judgement (Intact-Impaired) Mostly intact Impulse Control (Adequate-Impaired) impaired Memory (Rycevhcch-Kuyfgp-Lqtmwq, impaired Impaired-Intact) Concentration (Intact-Impaired) Impaired Attention (Intact-Impaired) Impaired Behavior (Appropriate-Inappropriate) Appropriate for context Risk Assessment Suicidal Ideation (Plan) No Homicidal Ideation (Plan) No Comment Patient denies SI/HI. When asked about thoughts of suicide, patient reports directly that his is not thinking about killing himself , as suicide is against the rules of suicidality. Patient reports multiple times that he wants to give up and throw in the towel but consistently states he feels it is wrong to commit suicide. Intervention Intervention 4 H YOUTH DEVELOPMENT SPECIALIST meets with patient. Patient discusses desire for inpatient SULTANA treatment, and that he has been feeling significantly depressed lately. Patient reports feeling like a failure and states he is frustrated that he relapsed. 4 H YOUTH DEVELOPMENT SPECIALIST and patient discuss detox. Patient states he is open to detox, but is seeking inpatient treatment. Patient provides 4 H YOUTH DEVELOPMENT SPECIALIST with verbal consent to contact local detox and treatment facilities. Plan RA Plan 4 H YOUTH DEVELOPMENT SPECIALIST will explore inpatient and detox options. If no appropriate placements available, patient will likely be d/c'ed to home once medically clear with outpatient treatment plan in place. VIOLETA Palomino
[2019-12-10] MEDS: LORazepam 0.5 MG TABLET 2 MG PO (17:24)
--- NOTE | 2019-12-10 17:27 | PC.NURSE ---
Pt appears to be increasingly anxious, noted fidgeting with his hands and picking his skin at his face. Pt provided crayons and paper to color and offered additional food to eat. Pt medicated with PO Lorazepam as ordered, see MAR. BALLARD at bedside, will continue to monitor.
--- NOTE | 2019-12-10 18:02 | CM.SWNOTE ---
MULTIMEDIA MANAGER note MULTIMEDIA MANAGER did not recieve return calls from [employer] or [facility]. MULTIMEDIA MANAGER meets with patient and discusses next steps. Patient informs MULTIMEDIA MANAGER about potential placement at facility in [place] again, and patient declines. MULTIMEDIA MANAGER informs patient that he will likely be discharged today and discusses outpatient options. Patient informs MULTIMEDIA MANAGER that he does not want outpatient treatment and feels strongly that he needs inpatient treatment. MULTIMEDIA MANAGER discusses intake and referral process for inpatient treatment with patient and refers patient to [facility] for intake ans assessment for inpatient treatment. MULTIMEDIA MANAGER discusses [facility] in [facility]. Patient indicates familiarity with [facility] and informs MULTIMEDIA MANAGER that he will call. MULTIMEDIA MANAGER informs Dr. Payton of plan and Dr. Payton adds contact info for both resources above and access times for [facility]. Pl: patient to be d/c'ed to vehicle and f/u with outpatient treatment. VIOLETA Palomino
--- NOTE | 2019-12-10 18:09 | PC.NURSE ---
all belongings returned to patient upon discharge from locked area.
== END 2019-12-10 18:09 | disposition home or self-care (01) ==
PROVIDERS: Emergency Provider Emergency Medicine
DX: F15.21 Other stimulant dependence, in remission (principal); L03.211 Cellulitis of face
CPT/HCPCS: 36415; 80053; 80305; 80320; 81001; 84443; 85025; 99283; 99284

== ENCOUNTER 2020-01-13 22:36 | Emergency (ER) | payer OTHER, SELFPAY ==
--- NOTE | 2020-01-13 22:52 | ED.PSYCH ---
HPI - Psych <Arturo Payton DO - Last Filed: 01/16/20 19:26> General Chief Complaint: Psychiatric Symptoms Stated Complaint: SI Time Seen by Provider: 01/13/20 22:38 Source: patient and police History of Present Illness HPI Narrative: 34M smoker, methamphetamine user, with bipolar presents with [place] [employer] and the chief complaint of hearing voices and having occasional suicidal thoughts. Though PD states he told them he has been off his psychiatric meds, but he states he has been taking them. He admits to taking methamphetamine a few days ago. He denies any suicidal plan. He states he wants help with mental health and substance abuse. He denies other medical problems. He's had no fever, chills, N/V. MD complaint: other Onset (ago): day(s) Related Data Home Medications Medication Instructions Recorded Confirmed buprenorphine-naloxone [Zubsolv] 1 tab SUBLINGUAL BID 01/14/20 01/14/20 Previous Rx's Medication Instructions Recorded divalproex 500 mg tablet,delayed 500 mg PO QID #360 tab 12/27/19 release gabapentin 600 mg tablet 600 mg PO TID PRN #90 tab 12/29/19 quetiapine 100 mg tablet 200 mg PO BEDTIME #180 tab 12/29/19 quetiapine 100 mg tablet See Rx Instructions PO DAILY #180 12/29/19 tab Allergies Allergy/AdvReac Type Severity Reaction Status Date / Time lamotrigine AdvReac Rash Verified 12/09/19 10:06 Review of Systems <DO [place] Last Filed: 01/16/20 19:26> Constitutional Constitutional: Denies chills, Denies fatigue, Denies fever(s), Denies frequent falls, Denies lethargy and Denies weakness Eyes Eyes: Denies change in vision, Denies eye discharge, Denies irritation and Denies loss of vision ENT Ears, Nose, Mouth, and Throat: Denies change in voice, Denies dizziness, Denies neck pain, Denies sore throat and Denies throat swelling Cardiovascular Cardiovascular: Denies chest pain, Denies irregular heart rhythm, Denies lightheadedness, Denies palpitations, Denies dyspnea, Denies dyspnea on exertion and Denies orthopnea Respiratory Respiratory: Denies cough, Denies dyspnea, Denies dyspnea on exertion and Denies wheezing Gastrointestinal Gastrointestinal: Denies abdominal pain, Denies change in bowel habits, Denies diarrhea, Denies nausea and Denies vomiting Musculoskeletal Musculoskeletal: Denies neck pain and Denies numbness Integumentary/Breasts Skin/Breast: Denies pruritus, Denies erythema, Denies rash and Denies wounds Neurologic Neurologic: Reports behavioral changes, Denies confusion, Denies dizziness, Denies frequent falls, Denies loss of vision, Denies numbness and Denies weakness Psychiatric Psychiatric: Reports anxiety, Reports behavioral changes, Denies confusion, Denies depression, Reports auditory hallucinations, Denies homicidal ideation and Reports suicidal ideation Endocrine Endocrine: Denies fatigue, Denies flushing and Denies palpitations Hematologic/Lymphatic Hematologic/Lymphatic: Denies easy bruising Allergic/Immunologic Allergic/Immunologic: Denies urticaria, Denies throat swelling and Denies wheezing Patient History <Arturo Payton DO - Last Filed: 01/16/20 19:26> Social History Smoking Status: Current every day smoker Smoking Status: Current every day smoker Substance Use Type: methamphetamine Exam <Arturo Payton DO - Last Filed: 01/16/20 19:26> Narrative Exam Narrative: GENERAL: [34] year old patient appears stated age. Bit disheveled and unkempt, pressured speech. Agitated. Pacing. Picking at fingers HEAD: Atraumatic. Normocephalic. EYES: Pupils equal round and reactive. Extraocular motions intact. No scleral icterus. No injection or drainage. ENT: Poor dentition through out. Nose without bleeding, purulent drainage. Throat without erythema, tonsillar hypertrophy or exudate. Airway patent. NECK: Trachea midline. Non tender CARDIOVASCULAR: Regular rate and rhythm without murmurs, gallops, or rubs. RESPIRATORY: Clear to auscultation. Breath sounds equal bilaterally. No wheezes, rales, or rhonchi. GASTROINTESTINAL: Abdomen soft, non-tender, nondistended. EXTREMITIES: No edema or joint tenderness. BACK: Nontender without deformity or crepitance. No flank tenderness. NEURO: AOx3. SKIN: Few facial skin excoritations. No rash or erythema of visible areas Initial Vital Signs Initial Vital Signs: Vital Signs Temperature 98.1 F 01/13/20 22:57 Pulse Rate 99 H 07/24/20 22:57 Respiratory Rate 19 01/13/20 22:57 Blood Pressure 132/77 01/13/20 22:57 Pulse Oximetry 97 01/13/20 22:57 <Jb Galeano MD - Last Filed: 01/14/20 19:18> Initial Vital Signs Initial Vital Signs: Vital Signs Temperature 98.1 F 01/13/20 22:57 Pulse Rate 99 H 01/13/20 22:57 Respiratory Rate 19 01/13/20 22:57 Blood Pressure 132/77 01/13/20 22:57 Pulse Oximetry 97 01/13/20 22:57 <Seferino Mahoney DO - Last Filed: 01/15/20 06:39> Initial Vital Signs Initial Vital Signs: Vital Signs Temperature 98.1 F 01/13/20 22:57 Pulse Rate 99 H 01/13/20 22:57 Respiratory Rate 01/13/20 22:57 Blood Pressure 132/77 01/13/20 22:57 Pulse Oximetry 97 01/13/20 22:57 Course <Arturo Payton DO - Last Filed: 01/16/20 19:26> Orders Ordered: Discontinued Medications Diphenhydramine HCl (Benadryl) 50 mg PO NOW ONE Stop: 01/14/20 00:09 Last Admin: 01/14/20 00:17 Dose: 50 mg Documented by: JAVIER Divalproex Sodium (Depakote) 500 mg PO QID [facility] Last Admin: 01/15/20 08:27 Dose: 500 mg Documented by: Admin: 01/14/20 20:45 Dose: 500 mg Documented by: Admin: 01/14/20 18:38 Dose: 500 mg Documented by: Admin: 01/14/20 12:53 Dose: 500 mg Documented by: NAZANIN Gabapentin (Neurontin) 600 mg PO DAILY [facility] Gabapentin (Neurontin) 600 mg PO TID [facility] Last Admin: 01/15/20 08:27 Dose: 600 mg Documented by: Admin: 01/14/20 20:45 Dose: 600 mg Documented by: Admin: 01/14/20 15:17 Dose: Not Given Documented by: Admin: 01/14/20 12:54 Dose: 600 mg Documented by: NAZANIN Haloperidol (Haldol) 5 mg PO NOW ONE Stop: 01/13/20 22:50 Last Admin: 01/13/20 23:06 Dose: 5 mg Documented by: VIBHA Quetiapine Fumarate (Seroquel) 100 mg PO DAILY [facility] Last Admin: 01/14/20 14:04 Dose: Not Given Documented by: NAZANIN Quetiapine Fumarate (Seroquel) 200 mg PO BEDTIME [facility] Last Admin: 01/14/20 20:44 Dose: 200 mg Documented by: VIBHA Quetiapine Fumarate (Seroquel) 100 mg PO DAILY [facility] Last Admin: 01/15/20 08:27 Dose: 100 mg Documented by: Admin: 01/14/20 12:54 Dose: 100 mg Documented by: NAZANIN Vital Signs Vital signs: Vital Signs - 8 hr 01/14/20 11:37 01/14/20 18:43 Pulse Rate 66 63 Respiratory Rate 18 15 Blood Pressure 125/73 111/64 Pulse Oximetry 97 100 <Jb Galeano MD - Last Filed: 01/14/20 19:18> Orders Ordered: Discontinued Medications Diphenhydramine HCl (Benadryl) 50 mg PO NOW ONE Stop: 01/14/20 00:09 Last Admin: 01/14/20 00:17 Dose: 50 mg Documented by: JAVIER Divalproex Sodium (Depakote) 500 mg PO QID [facility] Last Admin: 01/15/20 08:27 Dose: 500 mg Documented by: Admin: 01/14/20 20:45 Dose: 500 mg Documented by: Admin: 01/14/20 18:38 Dose: 500 mg Documented by: Admin: 01/14/20 12:53 Dose: 500 mg Documented by: NAZANIN Gabapentin (Neurontin) 600 mg PO DAILY [facility] Gabapentin (Neurontin) 600 mg PO TID [facility] Last Admin: 01/15/20 08:27 Dose: 600 mg Documented by: Admin: 01/14/20 20:45 Dose: 600 mg Documented by: Admin: 01/14/20 15:17 Dose: Not Given Documented by: Admin: 01/14/20 12:54 Dose: 600 mg Documented by: NAZANIN Haloperidol (Haldol) 5 mg PO NOW ONE Stop: 01/13/20 22:50 Last Admin: 01/13/20 23:06 Dose: 5 mg Documented by: VIBHA Quetiapine Fumarate (Seroquel) 100 mg PO DAILY [facility] Last Admin: 01/14/20 14:04 Dose: Not Given Documented by: NAZANIN Quetiapine Fumarate (Seroquel) 200 mg PO BEDTIME [facility] Last Admin: 01/14/20 20:44 Dose: 200 mg Documented by: VIBHA Quetiapine Fumarate (Seroquel) 100 mg PO DAILY [facility] Last Admin: 01/15/20 08:27 Dose: 100 mg Documented by: Admin: 01/14/20 12:54 Dose: 100 mg Documented by: NAZANIN Vital Signs Vital signs: Vital Signs - 8 hr 01/14/20 11:37 01/14/20 18:43 Pulse Rate 66 63 Respiratory Rate 18 15 Blood Pressure 125/73 111/64 Pulse Oximetry 97 100 <Seferino Mahoney DO - Last Filed: 01/15/20 06:39> Orders Ordered: Discontinued Medications Diphenhydramine HCl (Benadryl) 50 mg PO NOW ONE Stop: 01/14/20 00:09 Last Admin: 01/14/20 00:17 Dose: 50 mg Documented by: JAVIER Divalproex Sodium (Depakote) 500 mg PO QID [facility] Last Admin: 01/15/20 08:27 Dose: 500 mg Documented by: Admin: 01/14/20 20:45 Dose: 500 mg Documented by: Admin: 01/14/20 18:38 Dose: 500 mg Documented by: Admin: 01/14/20 12:53 Dose: 500 mg Documented by: NAZANIN Gabapentin (Neurontin) 600 mg PO DAILY [facility] Gabapentin (Neurontin) 600 mg PO TID [facility] Last Admin: 01/15/20 08:27 Dose: 600 mg Documented by: Admin: 01/14/20 20:45 Dose: 600 mg Documented by: Admin: 01/14/20 15:17 Dose: Not Given Documented by: Admin: 01/14/20 12:54 Dose: 600 mg Documented by: NAZANIN Haloperidol (Haldol) 5 mg PO NOW ONE Stop: 01/13/20 22:50 Last Admin: 01/13/20 23:06 Dose: 5 mg Documented by: VIBHA Quetiapine Fumarate (Seroquel) 100 mg PO DAILY [facility] Last Admin: 01/14/20 14:04 Dose: Not Given Documented by: NAZANIN Quetiapine Fumarate (Seroquel) 200 mg PO BEDTIME [facility] Last Admin: 01/14/20 20:44 Dose: 200 mg Documented by: VIBHA Quetiapine Fumarate (Seroquel) 100 mg PO DAILY [facility] Last Admin: 01/15/20 08:27 Dose: 100 mg Documented by: Admin: 01/14/20 12:54 Dose: 100 mg Documented by: NAZANIN Vital Signs Vital signs: Vital Signs - 8 hr 01/14/20 11:37 01/14/20 18:43 Pulse Rate 66 63 Respiratory Rate 18 15 Blood Pressure 125/73 111/64 Pulse Oximetry 97 100 MDM - Psych <Arturo Payton DO - Last Filed: 01/16/20 19:26> Lab Data Result diagrams: 01/13/20 23:10 01/13/20 23:10 Labs: Lab Results 01/13/20 01/13/20 01/13/20 Range/Units 23:10 23:10 23:10 WBC 6.1 (4.5-11.0) X10^3/uL RBC 4.07 L (4.5-5.9) X10^6/uL Hgb 11.9 L (13.5-17.5) g/dL Hct 34.9 L (41-53) % MCV 85.6 (80-100) fL MCH 29.1 (26-34) PG MCHC 34.0 (30-36) % RDW 13.0 (11.6-14.8) % Plt Count 252 (150-400) X10^3/uL Neut % (Auto) 52.6 (50-75) % Lymph % (Auto) 32.4 (25-40) % Eagle % (Auto) 11.5 (3-14) % Eos % (Auto) 2.7 (2-4) % Baso % (Auto) 0.8 (0-2) % Neut # (Auto) 3200 (1378-6678) /uL Lymph # (Auto) 2000 (5558-4836) /uL Eagle # (Auto) 700 (0-900) /uL Eos # (Auto) 200 (0-450) /uL Baso # (Auto) 0 (0-100) /uL Sodium 142 (137-145) mmol/L Potassium 3.6 (3.4-5.1) mmol/L Chloride 108 H (98-107) mmol/L Carbon Dioxide 26 (22-32) mmol/L BUN 20 (9-20) mg/dL Creatinine 0.77 (0.66-1.25) mg/dL Estimated GFR > 60.0 (>60) mL/min BUN/Creatinine Ratio 26.0 H (6-22) Glucose 89 (70-100) mg/dL Calcium 9.4 (8.4-10.2) mg/dL Total Bilirubin 0.4 (0.2-1.3) mg/dL AST 60 H (17-59) IU/L ALT 27 (<50) IU/L Alkaline Phosphatase 70 (38-126) U/L Total Protein 6.8 (6.3-8.2) g/dL Albumin 4.1 (3.5-5.0) g/dL Globulin 2.7 (1.7-4.1) g/dL Albumin/Globulin Ratio 1.5 (1.0-2.8) TSH 3.06 (0.47-4.68) uIU/mL U Opiates 300ng/mL cut (Negative) Ur Oxycodone Screen (Negative) Urine Methadone Screen (Negative) Ur Barbiturates Screen (Negative) U Tricyclic Antidepress (Negative) Ur Phencyclidine Scrn (Negative) Ur Amphetamines Screen (Negative) U Methamphetamines Scrn (Negative) Ur MDMA Scrn (Ecstasy) (Negative) U Benzodiazepines Scrn (Negative) Urine Cocaine Screen (Negative) U Marijuana (THC) Screen (Negative) Ethyl Alcohol < 10 ( - 10) mg/dL COVID-19 PCR (Negative) 01/14/20 01/14/20 Range/Units 11:14 18:00 WBC (4.5-11.0) X10^3/uL RBC (4.5-5.9) X10^6/uL Hgb (13.5-17.5) g/dL Hct (41-53) % MCV (80-100) fL MCH (26-34) PG MCHC (30-36) % RDW (11.6-14.8) % Plt Count (150-400) X10^3/uL Neut % (Auto) (50-75) % Lymph % (Auto) (25-40) % Eagle % (Auto) (3-14) % Eos % (Auto) (2-4) % Baso % (Auto) (0-2) % Neut # (Auto) (3514-3748) /uL Lymph # (Auto) (6513-0163) /uL Eagle # (Auto) (0-900) /uL Eos # (Auto) (0-450) /uL Baso # (Auto) (0-100) /uL Sodium (137-145) mmol/L Potassium (3.4-5.1) mmol/L Chloride (98-107) mmol/L Carbon Dioxide (22-32) mmol/L BUN (9-20) mg/dL Creatinine (0.66-1.25) mg/dL Estimated GFR (>60) mL/min BUN/Creatinine Ratio (6-22) Glucose (70-100) mg/dL Calcium (8.4-10.2) mg/dL Total Bilirubin (0.2-1.3) mg/dL AST (17-59) IU/L ALT (<50) IU/L Alkaline Phosphatase (38-126) U/L Total Protein (6.3-8.2) g/dL Albumin (3.5-5.0) g/dL Globulin (1.7-4.1) g/dL Albumin/Globulin Ratio (1.0-2.8) TSH (0.47-4.68) uIU/mL U Opiates 300ng/mL cut Negative (Negative) Ur Oxycodone Screen Negative (Negative) Urine Methadone Screen Negative (Negative) Ur Barbiturates Screen Negative (Negative) U Tricyclic Antidepress Positive H (Negative) Ur Phencyclidine Scrn Negative (Negative) Ur Amphetamines Screen Negative (Negative) U Methamphetamines Scrn Positive H (Negative) Ur MDMA Scrn (Ecstasy) Negative (Negative) U Benzodiazepines Scrn Negative (Negative) Urine Cocaine Screen Negative (Negative) U Marijuana (THC) Screen Negative (Negative) Ethyl Alcohol ( - 10) mg/dL COVID-19 PCR Negative (Negative) Point of Care Testing Glucose POC 99 Urine Dip Bedside Urine Glucose Negative Bedside Urine Bilirubin + 1 Bedside Urine Ketone +/- 5 Urine Specific [place] 1.015 Bedside Urine Occult Blood - Negative Bedside Urine pH 7.0 Bedside Urine Protein +/- 15 Bedside Urine Urobilinogen - Negative Bedside Urine Nitrite - Negative Bedside Urine Leukocytes - Negative Esterase <Jb Galeano MD - Last Filed: 01/14/20 19:18> Lab Data Labs: Lab Results 01/13/20 01/13/20 01/13/20 Range/Units 23:10 23:10 23:10 WBC 6.1 (4.5-11.0) X10^3/uL RBC 4.07 L (4.5-5.9) X10^6/uL Hgb 11.9 L (13.5-17.5) g/dL Hct 34.9 L (41-53) % MCV 85.6 (80-100) fL MCH 29.1 (26-34) PG MCHC 34.0 (30-36) % RDW 13.0 (11.6-14.8) % Plt Count 252 (150-400) X10^3/uL Neut % (Auto) 52.6 (50-75) % Lymph % (Auto) 32.4 (25-40) % Eagle % (Auto) 11.5 (3-14) % Eos % (Auto) 2.7 (2-4) % Baso % (Auto) 0.8 (0-2) % Neut # (Auto) 3200 (2153-4082) /uL Lymph # (Auto) 2000 (1756-9126) /uL Eagle # (Auto) 700 (0-900) /uL Eos # (Auto) 200 (0-450) /uL Baso # (Auto) 0 (0-100) /uL Sodium 142 (137-145) mmol/L Potassium 3.6 (3.4-5.1) mmol/L Chloride 108 H (98-107) mmol/L Carbon Dioxide 26 (22-32) mmol/L BUN 20 (9-20) mg/dL Creatinine 0.77 (0.66-1.25) mg/dL Estimated GFR > 60.0 (>60) mL/min BUN/Creatinine Ratio 26.0 H (6-22) Glucose 89 (70-100) mg/dL Calcium 9.4 (8.4-10.2) mg/dL Total Bilirubin 0.4 (0.2-1.3) mg/dL AST 60 H (17-59) IU/L ALT 27 (<50) IU/L Alkaline Phosphatase 70 (38-126) U/L Total Protein 6.8 (6.3-8.2) g/dL Albumin 4.1 (3.5-5.0) g/dL Globulin 2.7 (1.7-4.1) g/dL Albumin/Globulin Ratio 1.5 (1.0-2.8) TSH 3.06 (0.47-4.68) uIU/mL U Opiates 300ng/mL cut (Negative) Ur Oxycodone Screen (Negative) Urine Methadone Screen (Negative) Ur Barbiturates Screen (Negative) U Tricyclic Antidepress (Negative) Ur Phencyclidine Scrn (Negative) Ur Amphetamines Screen (Negative) U Methamphetamines Scrn (Negative) Ur MDMA Scrn (Ecstasy) (Negative) U Benzodiazepines Scrn (Negative) Urine Cocaine Screen (Negative) U Marijuana (THC) Screen (Negative) Ethyl Alcohol < 10 ( - 10) mg/dL COVID-19 PCR (Negative) 01/14/20 01/14/20 Range/Units 11:14 18:00 WBC (4.5-11.0) X10^3/uL RBC (4.5-5.9) X10^6/uL Hgb (13.5-17.5) g/dL Hct (41-53) % MCV (80-100) fL MCH (26-34) PG MCHC (30-36) % RDW (11.6-14.8) % Plt Count (150-400) X10^3/uL Neut % (Auto) (50-75) % Lymph % (Auto) (25-40) % Eagle % (Auto) (3-14) % Eos % (Auto) (2-4) % Baso % (Auto) (0-2) % Neut # (Auto) (5676-6212) /uL Lymph # (Auto) (2828-9483) /uL Eagle # (Auto) (0-900) /uL Eos # (Auto) (0-450) /uL Baso # (Auto) (0-100) /uL Sodium (137-145) mmol/L Potassium (3.4-5.1) mmol/L Chloride (98-107) mmol/L Carbon Dioxide (22-32) mmol/L BUN (9-20) mg/dL Creatinine (0.66-1.25) mg/dL Estimated GFR (>60) mL/min BUN/Creatinine Ratio (6-22) Glucose (70-100) mg/dL Calcium (8.4-10.2) mg/dL Total Bilirubin (0.2-1.3) mg/dL AST (17-59) IU/L ALT (<50) IU/L Alkaline Phosphatase (38-126) U/L Total Protein (6.3-8.2) g/dL Albumin (3.5-5.0) g/dL Globulin (1.7-4.1) g/dL Albumin/Globulin Ratio (1.0-2.8) TSH (0.47-4.68) uIU/mL U Opiates 300ng/mL cut Negative (Negative) Ur Oxycodone Screen Negative (Negative) Urine Methadone Screen Negative (Negative) Ur Barbiturates Screen Negative (Negative) U Tricyclic Antidepress Positive H (Negative) Ur Phencyclidine Scrn Negative (Negative) Ur Amphetamines Screen Negative (Negative) U Methamphetamines Scrn Positive H (Negative) Ur MDMA Scrn (Ecstasy) Negative (Negative) U Benzodiazepines Scrn Negative (Negative) Urine Cocaine Screen Negative (Negative) U Marijuana (THC) Screen Negative (Negative) Ethyl Alcohol ( - 10) mg/dL COVID-19 PCR Negative (Negative) Point of Care Testing Glucose POC 99 Urine Dip Bedside Urine Glucose Negative Bedside Urine Bilirubin + 1 Bedside Urine Ketone +/- 5 Urine Specific [place] 1.015 Bedside Urine Occult Blood - Negative Bedside Urine pH 7.0 Bedside Urine Protein +/- 15 Bedside Urine Urobilinogen - Negative Bedside Urine Nitrite - Negative Bedside Urine Leukocytes - Negative Esterase MDM Narrative Medical decision making narrative: Dr. Payton provided me with report at the change of shift. The patient has a history of psychiatric disorder and methamphetamine use. He has been having intermittent thoughts of suicide without a specific plan. He has been cooperative for me during the daytime. The medical physics teacher is working on finding placement for the patient. Report has been given to Dr. Mahoney. <Seferino Lanker, DO - Last Filed: 01/15/20 06:39> Lab Data Labs: Lab Results 01/13/20 01/13/20 01/13/20 Range/Units 23:10 23:10 23:10 WBC 6.1 (4.5-11.0) X10^3/uL RBC 4.07 L (4.5-5.9) X10^6/uL Hgb 11.9 L (13.5-17.5) g/dL Hct 34.9 L (41-53) % MCV 85.6 (80-100) fL MCH 29.1 (26-34) PG MCHC 34.0 (30-36) % RDW 13.0 (11.6-14.8) % Plt Count 252 (150-400) X10^3/uL Neut % (Auto) 52.6 (50-75) % Lymph % (Auto) 32.4 (25-40) % Eagle % (Auto) 11.5 (3-14) % Eos % (Auto) 2.7 (2-4) % Baso % (Auto) 0.8 (0-2) % Neut # (Auto) 3200 (9452-3310) /uL Lymph # (Auto) 2000 (8789-1654) /uL Eagle # (Auto) 700 (0-900) /uL Eos # (Auto) 200 (0-450) /uL Baso # (Auto) 0 (0-100) /uL Sodium 142 (137-145) mmol/L Potassium 3.6 (3.4-5.1) mmol/L Chloride 108 H (98-107) mmol/L Carbon Dioxide 26 (22-32) mmol/L BUN 20 (9-20) mg/dL Creatinine 0.77 (0.66-1.25) mg/dL Estimated GFR > 60.0 (>60) mL/min BUN/Creatinine Ratio 26.0 H (6-22) Glucose 89 (70-100) mg/dL Calcium 9.4 (8.4-10.2) mg/dL Total Bilirubin 0.4 (0.2-1.3) mg/dL AST 60 H (17-59) IU/L ALT 27 (<50) IU/L Alkaline Phosphatase 70 (38-126) U/L Total Protein 6.8 (6.3-8.2) g/dL Albumin 4.1 (3.5-5.0) g/dL Globulin 2.7 (1.7-4.1) g/dL Albumin/Globulin Ratio 1.5 (1.0-2.8) TSH 3.06 (0.47-4.68) uIU/mL U Opiates 300ng/mL cut (Negative) Ur Oxycodone Screen (Negative) Urine Methadone Screen (Negative) Ur Barbiturates Screen (Negative) U Tricyclic Antidepress (Negative) Ur Phencyclidine Scrn (Negative) Ur Amphetamines Screen (Negative) U Methamphetamines Scrn (Negative) Ur MDMA Scrn (Ecstasy) (Negative) U Benzodiazepines Scrn (Negative) Urine Cocaine Screen (Negative) U Marijuana (THC) Screen (Negative) Ethyl Alcohol < 10 ( - 10) mg/dL COVID-19 PCR (Negative) 01/14/20 01/14/20 Range/Units 11:14 18:00 WBC (4.5-11.0) X10^3/uL RBC (4.5-5.9) X10^6/uL Hgb (13.5-17.5) g/dL Hct (41-53) % MCV (80-100) fL MCH (26-34) PG MCHC (30-36) % RDW (11.6-14.8) % Plt Count (150-400) X10^3/uL Neut % (Auto) (50-75) % Lymph % (Auto) (25-40) % Eagle % (Auto) (3-14) % Eos % (Auto) (2-4) % Baso % (Auto) (0-2) % Neut # (Auto) (0810-2165) /uL Lymph # (Auto) (8784-9290) /uL Eagle # (Auto) (0-900) /uL Eos # (Auto) (0-450) /uL Baso # (Auto) (0-100) /uL Sodium (137-145) mmol/L Potassium (3.4-5.1) mmol/L Chloride (98-107) mmol/L Carbon Dioxide (22-32) mmol/L BUN (9-20) mg/dL Creatinine (0.66-1.25) mg/dL Estimated GFR (>60) mL/min BUN/Creatinine Ratio (6-22) Glucose (70-100) mg/dL Calcium (8.4-10.2) mg/dL Total Bilirubin (0.2-1.3) mg/dL AST (17-59) IU/L ALT (<50) IU/L Alkaline Phosphatase (38-126) U/L Total Protein (6.3-8.2) g/dL Albumin (3.5-5.0) g/dL Globulin (1.7-4.1) g/dL Albumin/Globulin Ratio (1.0-2.8) TSH (0.47-4.68) uIU/mL U Opiates 300ng/mL cut Negative (Negative) Ur Oxycodone Screen Negative (Negative) Urine Methadone Screen Negative (Negative) Ur Barbiturates Screen Negative (Negative) U Tricyclic Antidepress Positive H (Negative) Ur Phencyclidine Scrn Negative (Negative) Ur Amphetamines Screen Negative (Negative) U Methamphetamines Scrn Positive H (Negative) Ur MDMA Scrn (Ecstasy) Negative (Negative) U Benzodiazepines Scrn Negative (Negative) Urine Cocaine Screen Negative (Negative) U Marijuana (THC) Screen Negative (Negative) Ethyl Alcohol ( - 10) mg/dL COVID-19 PCR Negative (Negative) Point of Care Testing Glucose POC 99 Urine Dip Bedside Urine Glucose Negative Bedside Urine Bilirubin + 1 Bedside Urine Ketone +/- 5 Urine Specific [place] 1.015 Bedside Urine Occult Blood - Negative Bedside Urine pH 7.0 Bedside Urine Protein +/- 15 Bedside Urine Urobilinogen - Negative Bedside Urine Nitrite - Negative Bedside Urine Leukocytes - Negative Esterase MDM Narrative Medical decision making narrative: Dr mahoney. Received turned over from Dr. galeano. Patient is medically cleared. Has been calm overnight. Patient has been accepted had a mental health facility and is willing to be transported. He is stable for transport. Discharge Plan Departure Patient Disposition: Xfer Psychiatric Hosp Clinical Impression: Methamphetamine abuse, Suicidal ideation Discharge Date/Time: 01/15/20 09:02
[2020-01-13 22:57] VITALS: BP 132/77; PULSE 99; RESP 19; TEMP 36.7; O2SAT 97
[2020-01-13] MEDS: haloperidoL 5 MG TABLET PO (23:06)
[2020-01-13 23:21] LABS: Add Manual Diff / Slide Review NO; Basophils Absolute Auto 0 /uL (0-100); Basophils Percent Auto 0.8 % (0-2); Eosinophils Absolute Auto 200 /uL (0-450); Eosinophils Percent Auto 2.7 % (2-4); Hematocrit 34.9 % (41-53); Hemoglobin 11.9 g/dL (13.5-17.5); Lymphocytes Absolute Auto 2000 /uL (1100-4500); Lymphocytes Percent Auto 32.4 % (25-40); Mean Corpuscular Hemoglobin 29.1 PG (26-34); Mean Corpuscular Volume 85.6 fL (80-100); Monocytes Absolute Auto 700 /uL (0-900); Monocytes Percent Auto 11.5 % (3-14); Neutrophils Absolute Auto 3200 /uL (1500-7000); Neutrophils Percent Auto 52.6 % (50-75); Platelet Count 252 X10^3/uL (150-400); Red Blood Cell Count 4.07 X10^6/uL (4.5-5.9); White Blood Cell Count 6.1 X10^3/uL (4.5-11.0)
--- NOTE | 2020-01-13 23:22 | PC.NURSE ---
Pt denies having thoughts of hurting self. Denies wanting to kill anyone, but is having thoughts of hurting people. Pt is here voluntarily. [employer] removed to knifes from patient. Have knives secured.
[2020-01-13 23:29] LABS: Alanine Aminotransferase 27 IU/L (<50); Albumin 4.1 g/dL (3.5-5.0); Albumin Globulin Ratio 1.5 (1.0-2.8); Alkaline Phosphatase 70 U/L (38-126); Aspartate Aminotransferase 60 IU/L (17-59); Bilirubin Total 0.4 mg/dL (0.2-1.3); Blood Urea Nitrogen 20 mg/dL (9-20); Calcium 9.4 mg/dL (8.4-10.2); Carbon Dioxide 26 mmol/L (22-32); Chloride 108 mmol/L (98-107); Estimated Glomerular Filt Rate > 60.0 mL/min (>60); Ethanol (ETOH) < 10 mg/dL; Globulin 2.7 g/dL (1.7-4.1); Glucose 89 mg/dL (70-100); HEMOLYSIS < 15 (0-50); Potassium 3.6 mmol/L (3.4-5.1); Sodium 142 mmol/L (137-145); Total Protein 6.8 g/dL (6.3-8.2)
[2020-01-14 00:10] LABS: Thyroid Stimulating Hormone 3.06 uIU/mL (0.47-4.68)
[2020-01-14] MEDS: diphenhydrAMINE 25 MG TABLET 50 MG PO (00:17)
[2020-01-14 11:37] VITALS: BP 125/73; PULSE 66; RESP 18; O2SAT 97
[2020-01-14 11:38] LABS: UR Morphine/Opiate cutoff 300 Negative (Negative); Ur Creatinine Normal (Normal); Ur Specific Gravity Normal (Normal); Urine Amphetamines Negative (Negative); Urine Barbiturates Negative (Negative); Urine Cocaine Negative (Negative); Urine MDMA Negative (Negative); Urine Methamphetamines Positive (Negative); Urine Phencyclidine Negative (Negative); Urine Tetrahydrocannabinol Negative (Negative); Urine pH Normal (Normal)
[2020-01-14 11:39] LABS: Urine Benzodiazepines Negative (Negative); Urine Methadone Negative (Negative); Urine Oxycodone Negative (Negative); Urine Tricyclic Antidepressant Positive (Negative)
--- NOTE | 2020-01-14 12:52 | PC.NURSE ---
Patient sitting on bed eating lunch provided by staff.
[2020-01-14] MEDS: DIVALPROEX DR 250 MG TABLET 500 MG PO ×3 (12:53→20:45)
[2020-01-14] MEDS: GABAPENTIN 600 MG TABLET PO ×2 (12:54→20:45)
[2020-01-14] MEDS: QUETIAPINE 100 MG TABLET PO (12:54)
--- NOTE | 2020-01-14 12:56 | CM.SWNOTE ---
SECONDARY MARKET MANAGER assessment SECONDARY MARKET MANAGER - Coil Connector Repairer Assessment SECONDARY MARKET MANAGER - Coil Connector Repairer Assessment Start: 01/14/20 12:28 Freq: Status: Active Protocol: Document 01/14/20 12:28 BRODY (Rec: 01/14/20 12:55 BRODY [id number]) SECONDARY MARKET MANAGER/Coil Connector Repairer Assessment Time Spent with Patient Start date 01/14/20 Visit Start Time 12:05 End date 01/14/20 Visit End Time 12:25 Total time Care Management spent on 20 patient visit-in minutes Mental Health Screening Include Onset, Duration, Intensity Presenting Problem Patient presents to ED via police after calling 911 due to having suicidal thoughts and thoughts of harming his neighbor at the motel he is staying at. Patient reports he has been having auditory hallucinations, paranoia, and states he is worried his parents, family and dog are all . Precipitating Event(s) Patient has been seen in ED 2 other times for concerns related to substance use and mental health since November 21, 2019. Patient relapsed on methamphetamine in early November 2019. Patient discontinued use followng ED visit on , and reports a recent relapse/last use of methamphetamine on 01/12/20. Patient had 6 months of sobriety prior to this relapse . Patient was asked to leave the long-term he has been staying at in November, following his relapse. Patient currently residing in local [facility]. Current Behavioral Health Provider(s) Dr. Norton- Psychiatrist- [facility] Facility, Provider, Ph. # [phone] Psych. Hx Mental Health and Chemical Patient has significant Dependency history of schizophrenia, depression, anxiety, PTSD, and methamphetamine use. Psychiatric Hospitalizations (date(s)/ [facility]- 2018. [facility]- location) 2019. Support System(s) unable to assess at this time. School/Work None reported. Legal Concerns Legal Matters - Outstanding Issues none reported. Mental Status Orientation (Person/Place/Time) Patient oriented x3. Affect Dysphoric, agitated, slightly labile. Thought Content - Specify/Describe Patient reports his next-door- Obsessions, Delusions, Hallucinations neighbor at the motel he is staying at is has been messing with his head states that messages from the neighbor are coming to him through the felix. Patient reports that he is hearing voices and is worried because he believes his family is . Thought Processes (Vqwogbs-Doowtisp-Tubs Coherent Eliqcmzz-Pnybhsvt-Iccyouqtfd- Xvccbyxgtsdqlp-Njvowse-Gwvugyjsjtme- Thought Blocking) Speech (Uzucyv-Gzql-Ztyziiy-Rapid-Soft- Slurred Loud-Pressured) Motor (Gvjifd-Avtlyjuxi-Pujk-Other) Normal Insight (Present-Partially Present- Partially present Impaired) Judgment (Intact-Impaired) Impaired Impulse Control (Adequate-Impaired) Impaired Memory (Vfgcfwrgh-Mfbzmg-Ygtwvj, Intact x3 Impaired-Intact) Concentration (Intact-Impaired) Impaired Attention (Intact-Impaired) Intact Behavior (Appropriate-Inappropriate) Appropriate for context. Additional Comment Patient was agitated during interview, but states I've been asking for help for two months and states he wants to be put in an institution so I don't have to feel this way . When asked if patient would transfer to an inpatient behavioral health placement if a bed was found, patient states yes. Risk Assessment Suicidal Ideation (Plan) Yes Homicidal Ideation (Plan) Yes Comment Patient reports SI with plan to drive off a thai or jump off a thai. Patient reports he has been thinking about harming his next door neighbor at the motel, and this thinking is what prompted him to call 911 and request to be taken to the hospital. Intervention Intervention SECONDARY MARKET MANAGER consult requested for patient. SECONDARY MARKET MANAGER meets with patient. Patient is agitated when SECONDARY MARKET MANAGER enters room and SECONDARY MARKET MANAGER and patient discuss patient's current situation. Patient states he is worried about his family, and after discussion SECONDARY MARKET MANAGER offers to call patients father. Patient provides consent for SECONDARY MARKET MANAGER to contact patient's father. Patient then reports I don't know if I would believe he was alive if patient or SECONDARY MARKET MANAGER spoke to father, and offers that he has been hearing voices. Patient reports he has been feeling suicidal and does have a plan. Patient reports having thoughts of wanting to harm others, and states this is why he called 911 to bring him to the ED, as he does not want to live that life anymore. SECONDARY MARKET MANAGER inquires about inpatient behavioral health hospitalization. Patient states he would be willing to go to an inpatient behavioral health placement if a bed was found. SECONDARY MARKET MANAGER exits rooms and updates BRANDON Vu, and provider Dr. Canchola. Patient states he wants help Plan RA Plan SECONDARY MARKET MANAGER will contact patient's father and report back to patient. SECONDARY MARKET MANAGER will work to seek inpatient behavioral health hospitalization for patient. Dr. Canchola and BRANDON Vu aware of plan. Dejuan Kaiser SECONDARY MARKET MANAGER
--- NOTE | 2020-01-14 14:06 | CM.SWNOTE ---
Addendum entered by Dejuan Kaiser 01/14/20 17:04: UPDATE 1704 INDUSTRIAL COFFEE GRINDER receives call from Gold at [facility]. Gold explains that [facility] is unable to accept patient due to patient behavior during previous stay. INDUSTRIAL COFFEE GRINDER calls [facility] and speaks to Darlene. Darlene states she is reviewing chart and states she will follow up with INDUSTRIAL COFFEE GRINDER once a decision is reached. INDUSTRIAL COFFEE GRINDER calls [facility] for update and leaves voicemail. INDUSTRIAL COFFEE GRINDER calls [facility], [facility], and [facility]. All facilities have no bed availability. INDUSTRIAL COFFEE GRINDER will wait for follow up from [facility] and [facility]. VIOLETA Palomino Addendum entered by Dejuan Kaiser 01/14/20 15:28: UPDATE 1528 [facility] called and requested to interview patient. INDUSTRIAL COFFEE GRINDER called [facility] from outside patient room and handed phone to patient. Harry from [facility] called INDUSTRIAL COFFEE GRINDER back and informed INDUSTRIAL COFFEE GRINDER that patient would not be accepted to [facility] due to a previous administrative discharge. INDUSTRIAL COFFEE GRINDER called [facility] and spoke to Belkis, Belkis states that there might be beds available, and requests that clinicals be faxed to [facility]. INDUSTRIAL COFFEE GRINDER faxes clinicals to [facility]. INDUSTRIAL COFFEE GRINDER receives call from Keila at [facility]. Keila informs INDUSTRIAL COFFEE GRINDER that there are open beds on the open unit at [facility] and requests clinicals be faxed. Keila informs INDUSTRIAL COFFEE GRINDER that clinical completion supervisor will review patient clinicals, and states that patients who present with symptoms of psychosis are not always good fits for their open unit. INDUSTRIAL COFFEE GRINDER receives return call from Gold at [facility]. Gold and VIOLETA discuss patient and Gold requests clinicals be faxed. Gold explains that due to patient's previous discharge from [facility], patient may or may not be a good fit. Gold states he will staff case with completion supervisor. INDUSTRIAL COFFEE GRINDER faxes clinicals to Gold at [facility]. INDUSTRIAL COFFEE GRINDER updates patient. Patient indicates understanding and remains agreeable to plan. Pl: INDUSTRIAL COFFEE GRINDER will wait for further correspondence from [facility] and [facility]. VIOLETA Palomino Original Note: INDUSTRIAL COFFEE GRINDER note Following assessment INDUSTRIAL COFFEE GRINDER calls patient's father Cosmo Baxter at and leaves voicemail with no identifying information about patient and requests a return call. INDUSTRIAL COFFEE GRINDER begins calling local [facility] and inquiring about placement. [facility] has no beds. INDUSTRIAL COFFEE GRINDER contacts [facility] who inform INDUSTRIAL COFFEE GRINDER that they have open beds and request clinicals. INDUSTRIAL COFFEE GRINDER faxes clinicals to [facility] and receives return call informing INDUSTRIAL COFFEE GRINDER that they no longer have open beds. INDUSTRIAL COFFEE GRINDER leaves messages at the following hospitals inquiring about bed availability and requesting return calls: [facility], [facility]. INDUSTRIAL COFFEE GRINDER then calls [facility] and speaks to Jb. Bj informs INDUSTRIAL COFFEE GRINDER that they have open beds on the co-occurring floor, and requests clinicals. INDUSTRIAL COFFEE GRINDER faxes clinicals to [facility] at . INDUSTRIAL COFFEE GRINDER receives return call from patient's father. Patient's father confirms that patient's family and dog are all safe, and informs INDUSTRIAL COFFEE GRINDER that concern for the wellbeing of family members is a common part of patient's experience of auditory hallucinations. INDUSTRIAL COFFEE GRINDER thanked father for info. INDUSTRIAL COFFEE GRINDER attempted to meet with patient, but patient currently asleep. INDUSTRIAL COFFEE GRINDER provides update to BRANDON Vu. Pl: INDUSTRIAL COFFEE GRINDER will wait for return call from [facility], and provide patient with update when patient awake. VIOLETA Palomino
--- NOTE | 2020-01-14 14:44 | PC.NURSE ---
PANTOMIMIST in room talking with patient
--- NOTE | 2020-01-14 18:05 | CM.SWNOTE ---
SUGAR DRIER note- UPDATE Update- 1805 SUGAR DRIER receives call from Darlene at [facility]. Darlene informs SUGAR DRIER that she needs to interview patient in order to continue process. SUGAR DRIER puts Darlene on hold and goes to inform patient. Patient is heavily asleep. SUGAR DRIER notifies BRANDON Vu who rouses patient. SUGAR DRIER hands phone to patient and patient completes assessment outside of room. SUGAR DRIER discusses how patient is currently feeling with patient. Patient states he is feeling a bit better, but still wants the support of an inpatient hospitalization for his behavioral health concerns. After assessment, Darlene calls [employer] and states they will need verification of his prescription of Suboxone. Darlene also states that patient will need a negative COVID test and EKG prior to being accepted. SUGAR DRIER discusses this with BRANDON Vu and patient. Patient states he has pills in his belongings. With patient's permission, RN views pills (still in packaging) in confirms prescription. SUGAR DRIER then calls Darlene, who requests copies of the medication confirmation be faxed to her. SUGAR DRIER faxes documents to Darlene at [facility]. BRANDON Vu confirms that she will order COVID screen and EKG. SUGAR DRIER will continue working with patient n placement at [facility]. VIOLETA Palomino
[2020-01-14 18:43] VITALS: BP 111/64; PULSE 63; RESP 15; O2SAT 100
[2020-01-14 19:54] LABS: COVID19 -Nasal RAPID Negative (Negative)
--- NOTE | 2020-01-14 20:18 | CM.SWNOTE ---
Addendum entered by Dejuan Kaiser 01/14/20 20:36: COURT CRIER provides patient with update. Patient indicates understanding and is agreeable to plan of care. VIOLETA Palomino Original Note: COURT CRIER note- UPDATE Update 2017 Per patient request, COURT CRIER calls patient's father and leaves voicemail for assistance in getting patient's belongings out of motel. In voicemail, COURT CRIER requests that patient's father call [phone] if returning call after [address] of [address] CRIER shift. COURT CRIER faxes EKG and COVID result to [facility] once the result becomes available. COURT CRIER calls Darlene at [facility] to follow up. Darlene reports that [facility] had a communication error, and that there was not an open bed for patient as Darlene had thought. Darlene is apologetic and reports bringing the issue to the DIRECTOR TALENT to figure out a potential solution. Darlene explains that there are a few beds that may become available during the evening, and that she will call ER if this is the case. Darlene states she will contact ED at [phone] before midnight to follow up. Darlene explains that patient has received a tentative acceptance and will be the first person to be processed for next available bed. COURT CRIER updates BRANDON Patterson and Dr. Mahoney. Due to lack of local bed availability, patient's reported plan, and patient's continued desire to receive inpatient behavioral health support, patient will remain in ED overnight. COURT CRIER will send follow up note to COURT CRIER on shift following day, and will leave clinical packet in paper chart. VIOLETA Palomino
[2020-01-14] MEDS: QUETIAPINE 200 MG TABLET PO (20:44)
--- NOTE | 2020-01-14 21:15 | PC.NURSE ---
Patient eating a snack on stretcher.
--- NOTE | 2020-01-14 22:13 | PC.NURSE ---
pt's dad came and picked up car keys. Gave knives to him as well.
--- NOTE | 2020-01-15 00:15 | PC.NURSE ---
Placed call to [facility] to follow up on bed placement, still do not have a bed available.
--- NOTE | 2020-01-15 06:38 | PC.NURSE ---
Called [facility] again to check on bed status. Pt was accepted at [facility]. Called transport set up.
[2020-01-15] MEDS: DIVALPROEX DR 250 MG TABLET 500 MG PO (08:27)
[2020-01-15] MEDS: GABAPENTIN 600 MG TABLET PO (08:27)
[2020-01-15] MEDS: QUETIAPINE 100 MG TABLET PO (08:27)
[2020-01-15 08:32] VITALS: BP 109/62; PULSE 82; RESP 14; O2SAT 96
== END 2020-01-15 09:02 ==
PROVIDERS: Emergency Medicine; Emergency Provider Emergency Medicine
DX: R45.851 Suicidal ideations (principal); F15.10 Other stimulant abuse, uncomplicated; F41.9 Anxiety disorder, unspecified; R44.0 Auditory hallucinations
CPT/HCPCS: 36415; 80053; 80305; 80320; 81003; 82962; 84443; 85025; 87635; 93005; 99285